=== PATIENT | female | born 1970 | race Caucasian/White ===

== ENCOUNTER 2020-06-11 06:23 | Outpatient (REF) | payer BC, SELFPAY ==
[2020-06-11 11:52] LABS: Estimated Average Glucose 148 mg/dL; Hemoglobin A1c % 6.8 %
[2020-06-11 12:13] LABS: Alanine Aminotransferase 36 U/L (0-31); Albumin Level 4.3 g/dL (3.5-5.0); Alkaline Phosphatase 88 U/L (39-117); Anion Gap 15 (12-20); Aspartate Amino Transferase 45 U/L (5-31); Bilirubin Total 0.5 mg/dL (0.0-1.0); Blood Urea Nitrogen 12 mg/dL (9-16); Calcium 9.2 mg/dL (8.4-10.2); Carbon Dioxide 26 mmol/L (22-29); Chloride 101 mmol/L (96-108); Cholesterol 218 mg/dL; Estimated Glomerular Filt Rate > 60; Glucose Fasting 145 mg/dL (60-99); HDL Cholesterol 58 mg/dL; LDL Cholesterol Calculated 131 mg/dl; Potassium 4.6 mmol/l (3.3-5.1); Sodium 137 mmol/L (135-145); Total Protein 7.9 g/dL (6.5-8.0); Triglycerides 147 mg/dL
== END 2020-06-11 06:24 | disposition home or self-care (01) ==
LOC: HO.HMGCLDS 06:23
PROVIDERS: PCP Nurse Practitioner Family; Visit Provider Nurse Practitioner Family
DX: E11.9 Type 2 diabetes mellitus without complications (principal)
CPT/HCPCS: 80053; 80061; 83036

== ENCOUNTER 2020-09-10 11:56 | Emergency (ER) | payer BC, SELFPAY ==
--- NOTE | 2020-09-10 | XR_ITS ---
EXAMINATION: XR CHEST CLINICAL INFORMATION: Cough and fever COMPARISON: None TECHNIQUE: Frontal view of the chest was obtained. FINDINGS: The lungs are well-expanded with patchy opacity in both lower lobes suspicious for developing infiltrate. Heart size and pulmonary vascularity is normal. No gross bony abnormality seen. XR/XR chest 1V IMPRESSION: Bibasilar patchy very suspicious for developing infiltrate.
[2020-09-10 13:07] VITALS: BP 130/62; PULSE 97; RESP 18; TEMP 37.9; O2SAT 96; BMI 40.7
--- NOTE | 2020-09-10 13:55 | ECG_ITS ---
Test Reason : SOB Blood Pressure : / mmHG Vent. Rate : 083 BPM Atrial Rate : 083 BPM P-R Int : 150 ms QRS Dur : 088 ms QT Int : 352 ms P-R-T Axes : 036 -17 048 degrees QTc Int : 413 ms Normal sinus rhythm Poor R wave progression Abnormal ECG When compared with ECG of 26-MAY-2011 20:52, No significant change was found Referred By: Portia More Electronically Signed By:YASH PALMA MD
--- NOTE | 2020-09-10 14:09 | ED.URI ---
HPI - URI/Sore Throat General Chief Complaint: Upper Respiratory Symptoms Stated Complaint: COVID SYMPTONS Time Seen by Provider: 09/10/20 13:26 Source: patient Mode of arrival: ambulatory Limitations: no limitations History of Present Illness HPI Narrative: 49yoF c PMHx of DM and +COVID-19 two weeks ago presenting to the ED c c/o worsening COVID-19 symptoms which include fevers, chills, dry cough c sob and chest tightness/pressure sensation for the past few days worse today. Reports associated dyspnea on exertion orthopnea. Patient reports the chest tightness/pressure sensation and shortness of breath is worse with coughing. Denies any headaches, dizziness, changes in vision, nausea/vomiting, jaw pain, paresthesias, palpitations, extremity swelling, symptoms or any other symptoms complaints or concerns at this time. MD elicited complaint: fever and cough Pertinent past history: other (COVID-19 positive) Severity: moderate Able to tolerate fluids by mouth: Yes Exacerbating factors: deep breaths and supine positioning Relieving factors: nothing Associated symptoms: fever, chills, myalgias, cough, chest pain and shortness of breath Treatments prior to arrival: ibuprofen Related Data Home Medications Medication Instructions Recorded Confirmed blood sugar diagnostic #10 ea 07/11/20 flu vac qs 2019(4 yr up)CD(PF) ml IM 07/11/20 lancets 33 gauge #100 ea 07/11/20 Previous Rx's Medication Instructions Recorded niacin 1,000 mg tablet,extended 2,000 mg PO BEDTIME 180 Days #360 05/23/20 release tab sitagliptin 100 mg tablet 100 mg PO DAILY 90 Days #90 tab 06/03/20 gabapentin 100 mg capsule 100 mg PO TID 30 Days #90 cap 06/04/20 venlafaxine 75 mg capsule,extended 75 mg PO DAILY 90 Days #90 cap 06/04/20 release 24 hr ezetimibe 10 mg tablet 10 mg PO DAILY #30 tab 06/13/20 pioglitazone 30 mg tablet 30 mg PO DAILY #30 tab 07/09/20 aspirin 81 mg tablet,delayed 81 mg PO DAILY 90 Days #90 tab 07/11/20 release colesevelam 625 mg tablet 625 mg PO BID 30 Days #60 tab 07/11/20 lisinopril 5 mg tablet 5 mg PO DAILY #30 tab 07/11/20 metformin 1,000 mg tablet 1,000 mg PO BID #60 tab 08/30/20 acetaminophen [Tylenol Extra 1,000 mg PO QID PRN #14 tab 09/10/20 Strength] albuterol sulfate 1 inh INHALATION QID PRN #8.5 g 09/10/20 azithromycin See Rx Instructions .ROUTE 09/10/20 .COMPLEX #6 tab codeine-guaifenesin 5 ml PO Q6H PRN #120 ml 09/10/20 cyclobenzaprine 10 mg PO TID PRN #10 tab 09/10/20 ibuprofen 800 mg PO Q8H PRN #14 tab 09/10/20 prednisone 40 mg PO DAILY 5 Days #10 tab 09/10/20 Allergies Allergy/AdvReac Type Severity Reaction Status Date / Time No Known Allergies Allergy Verified 07/11/20 17:07 Review of Systems Review of Systems: Constitutional :+ Fever, + Chills, + Fatigue, + Malaise, No Night Sweats ENT/Mouth : No Hearing loss, No Ear Pain, No Nasal Congestion, No Sinus Pain, No Hoarseness, No sore throat, No Rhinorrhea, No Swallowing Difficulty Eyes: No Eye Pain, No Swelling, No Redness, No Foreign Body, No Discharge, No Vision Changes Cardiovascular : + Chest tightness/pressure sensation, + SOB, + Dyspnea on Exertion, + Orthopnea, No Edema, No extremity swelling, No Palpitations Respiratory : + Cough, No Sputum, No Wheezing, No Dyspnea Gastrointestinal : No Nausea, No Vomiting, No Diarrhea, No abdominal Pain, No Hematochezia, No Melena Genitourinary : No irregular bleeding, No Dysuria, No Urinary Frequency, No Hematuria, No Urinary Incontinence, No Urgency, No Flank Pain, No Urinary Flow Changes, No Hesitancy Musculoskeletal : + Myalgias, No Joint Swelling, No joint pain Skin : No Skin Lesions, No rash Neuro : No Weakness, No Numbness, No Paresthesias, No Loss of Consciousness, No Dizziness, No Headache Psych : No Anxiety/Panic, No Depression, No SI/HI/AH/VH Heme/Lymph: No Bruising, No Bleeding,No Lymphadenopathy Endocrine : No Polyuria, No Polydipsia, No Temperature Intolerance Yes all other systems are reviewed and are negative [facility] Past Medical History Attestation statement: The following information was validated with the patient. Medical History Diabetes Surgical History History of carpal tunnel surgery Family History Family History Father HTN (hypertension) Myocardial infarction CVD (cardiovascular disease) Mother Asthma Maternal Grandmother Lung cancer Maternal Aunt Lung cancer Smoker Social History Social History Alcohol intake: never Use of substances other than those prescribed or required for medical reasons: No Advance Directives: No Advance Directives Information Provided: No Physical Exam Vital Signs: Vital Signs: Last Vital Signs Temp 98.9 F 09/10/20 17:42 Pulse 84 09/10/20 17:42 Resp 18 09/10/20 17:42 BP 104/65 09/10/20 17:42 Pulse Ox 98 09/10/20 17:42 Body Mass Index 40.7 vital signs have been reviewed as normal and appeared to be correct. Blood pressure normal. Heart rate tachycardic. Respiration rate normal. Temperature febrile. Oxygen saturation normal. Appearance: Alert. Oriented X3. No acute distress. Head: Normal external exam. Normocephalic. Atraumatic. Eyes: PERRLA. EOMI. Conjunctiva and sclera normal. Eyelids normal. ENT: EAC normal. TM's Normal. Pharynx normal. Uvula midline. Moist mucous membranes. No trismus noted. No drooling noted. No muffled voice noted. Neck: Normal inspection. Neck supple. FROM. No adenopathy. Thyroid Normal. Trachea midline. No meningeal signs. No neck mass noted. CVS: Normal heart rate and rhythm. Heart sound normal. No murmurs noted. Pulses normal throughout. Respiratory: No respiratory distress. Painless inspiration. Breath sounds normal. No wheezes/rales/rhonchi noted. Chest nontender. No accessory muscle usage noted or decreased air movement noted. Abdomen: Soft and nontender. Bowel sounds normal in all 4 quadrants. No distention noted. No organomegaly noted. No visible injury noted. Back: No CVA tenderness. Full range of motion noted. Skin: Skin warm and dry. Normal skin color. Normal skin turgor. No rashes/lesions/lacerations noted. Extremities: No lower extremity edema. No calf tenderness noted. Extremities exhibit normal range of motion. Extremities nontender. Neuro: Oriented X 3. No motor deficit. No sensory deficit. Reflexes normal. Course Course Course Narrative: 14pm - 49yoF c PMHx of DM and +COVID-19 two weeks ago presenting to the ED c c/o worsening COVID-19 symptoms which include fevers, chills, dry cough c sob and chest tightness/pressure sensation for the past few days worse today. Reports associated dyspnea on exertion orthopnea. Patient reports the chest tightness/pressure sensation and shortness of breath is worse with coughing. - Concern for ACS vs PE vs COVID-19 vs PNA - Plan: Labs, CXR, EKG, Blood cultures, lactic acid, provide a L of IV fluids and 975 mg of Tylenol then re-evaluate. Reevaluation(s) Reevaluation #1: - white blood cell count 3000 - D-dimer 287 - random glucose 160 - magnesium 1.3 - AST/ALT/alkaline phosphate elevated at 93/87/134 - CRP 3.01 - lactic acid 2.2 - all other labs are within normal limits. - CXR bibasilar patchy very suspicious for developing infiltrate - will start the patient on Rocephin due to she is meeting sepsis and due to possible developing infiltrate on chest x-ray - will obtain a CTA of chest for possible PE due to elevated D-dimer. - awaiting COVID/RSV/flu swab Time: 15:18 Reevaluation #2: - CTA negative for PE. COVID positive. RSV/flu negative. EKG is similar compared to prior. - will DC home with antibiotics and symptomatic treatment along with instructions return if any new or worsening symptoms to follow up with primary care provider. Time: 18:21 [facility] - URI/Sore Throat Medical Records Attestation: I reviewed the patient's medical records. Lab Data Attestation: I reviewed the patient's lab results. Result diagrams: 09/10/20 14:19 09/10/20 14:19 Labs: Lab Results 09/10/20 09/10/20 09/10/20 Range/Units 14:19 14:19 14:19 WBC 3.7 L (4.8-10.8) X10*3/uL RBC 4.34 (4.20-5.50) X10*6/uL Hgb 11.9 L (12.0-16.0) g/dl Hct 37.8 (37-47) % MCV 87.1 (80-98) fL MCH 27.4 (27.0-33.0) pg MCHC 31.5 (31.0-35.0) g/dl RDW 13.7 (11.0-16.0) % Plt Count 180 (160-400) X10*3/uL MPV 9.4 (9.4-12.3) fL Immature Gran % (Auto) 0.0 (0.0-0.4) % Neut % (Auto) 67.5 (45-73) % Lymph % (Auto) 26.7 (20-40) % [place] % (Auto) 5.2 (2-11) % Eos % (Auto) 0.3 (0-4) % Baso % (Auto) 0.3 (0-2) % Lymph # (Auto) 1.0 L (1.2-4.9) X10*3/uL [place] # (Auto) 0.2 (0.1-1.2) X10*3/uL Eos # (Auto) 0.0 (0.0-0.4) X10*3/uL Baso # (Auto) 0.0 (0.0-0.2) X10*3/uL Abs Immat Gran (auto) 0.00 (0.00-0.03) X10*3/uL Absolute Neuts (auto) 2.5 (2.0-8.3) X10*3/uL Absolute Nucleated RBC 0.000 (0.0-0.012) X10*3/uL Nucleated RBC % (auto) 0.0 (0.0-0.2) /100WBC PT 12.7 (10.8-13.0) SEC INR 1.1 (0.9-1.1) D-Dimer 287 NG/ML Sodium 138 (135-145) mmol/L Potassium 4.2 (3.3-5.1) mmol/L Chloride 103 (96-108) mmol/L Carbon Dioxide 23 (22-29) mmol/L Anion Gap 16 (12-20) BUN 11 (9-16) mg/dL Creatinine 0.91 (0.5-1.4) mg/dL Estim Creat Clear Calc 101.5 Estimated GFR > 60 Random Glucose 160 H (60-115) mg/dL Lactic Acid (0.5-2.0) mmol/L Lactic Acid Fup @ 2Hr (0.5-2.0) mmol/L Calcium 9.5 (8.4-10.2) mg/dL Magnesium 1.3 L* (1.6-2.6) mg/dL Ferritin 133 (10-250) ng/mL Total Bilirubin 0.5 (0.0-1.0) mg/dL Direct Bilirubin 0.2 (0.0-0.5) mg/dL AST 93 H (5-31) U/L ALT 87 H (0-31) U/L Alkaline Phosphatase 134 H D (39-117) U/L Lactate Dehydrogenase 218 (122-220) U/L Troponin I High Sens (<3.5-17.0) ng/L C-Reactive Protein 3.01 H (< or = 0.50) mg/dL B-Natriuretic Peptide (<100) pg/mL Total Protein 8.7 H (6.5-8.0) g/dL Albumin 4.5 (3.5-5.0) g/dL Procalcitonin ng/mL Coronavirus (PCR) (Negative) Influenza Type A (PCR) (Negative) Influenza Type B (PCR) (Negative) RSV RNA Qual (PCR) (Negative) 09/10/20 09/10/20 09/10/20 Range/Units 14:19 14:19 14:19 WBC (4.8-10.8) X10*3/uL RBC (4.20-5.50) X10*6/uL Hgb (12.0-16.0) g/dl Hct (37-47) % MCV (80-98) fL MCH (27.0-33.0) pg MCHC (31.0-35.0) g/dl RDW (11.0-16.0) % Plt Count (160-400) X10*3/uL MPV (9.4-12.3) fL Immature Gran % (Auto) (0.0-0.4) % Neut % (Auto) (45-73) % Lymph % (Auto) (20-40) % [place] % (Auto) (2-11) % Eos % (Auto) (0-4) % Baso % (Auto) (0-2) % Lymph # (Auto) (1.2-4.9) X10*3/uL [place] # (Auto) (0.1-1.2) X10*3/uL Eos # (Auto) (0.0-0.4) X10*3/uL Baso # (Auto) (0.0-0.2) X10*3/uL Abs Immat Gran (auto) (0.00-0.03) X10*3/uL Absolute Neuts (auto) (2.0-8.3) X10*3/uL Absolute Nucleated RBC (0.0-0.012) X10*3/uL Nucleated RBC % (auto) (0.0-0.2) /100WBC PT (10.8-13.0) SEC INR (0.9-1.1) D-Dimer NG/ML Sodium (135-145) mmol/L Potassium (3.3-5.1) mmol/L Chloride (96-108) mmol/L Carbon Dioxide (22-29) mmol/L Anion Gap (12-20) BUN (9-16) mg/dL Creatinine (0.5-1.4) mg/dL Estim Creat Clear Calc Estimated GFR Random Glucose (60-115) mg/dL Lactic Acid 2.2 H* (0.5-2.0) mmol/L Lactic Acid Fup @ 2Hr (0.5-2.0) mmol/L Calcium (8.4-10.2) mg/dL Magnesium (1.6-2.6) mg/dL Ferritin (10-250) ng/mL Total Bilirubin (0.0-1.0) mg/dL Direct Bilirubin (0.0-0.5) mg/dL AST (5-31) U/L ALT (0-31) U/L Alkaline Phosphatase (39-117) U/L Lactate Dehydrogenase (122-220) U/L Troponin I High Sens < 3.5 (<3.5-17.0) ng/L C-Reactive Protein (< or = 0.50) mg/dL B-Natriuretic Peptide 11 (<100) pg/mL Total Protein (6.5-8.0) g/dL Albumin (3.5-5.0) g/dL Procalcitonin 0.04 ng/mL Coronavirus (PCR) (Negative) Influenza Type A (PCR) (Negative) Influenza Type B (PCR) (Negative) RSV RNA Qual (PCR) (Negative) 09/10/20 09/10/20 Range/Units 16:27 17:41 WBC (4.8-10.8) X10*3/uL RBC (4.20-5.50) X10*6/uL Hgb (12.0-16.0) g/dl Hct (37-47) % MCV (80-98) fL MCH (27.0-33.0) pg MCHC (31.0-35.0) g/dl RDW (11.0-16.0) % Plt Count (160-400) X10*3/uL MPV (9.4-12.3) fL Immature Gran % (Auto) (0.0-0.4) % Neut % (Auto) (45-73) % Lymph % (Auto) (20-40) % [place] % (Auto) (2-11) % Eos % (Auto) (0-4) % Baso % (Auto) (0-2) % Lymph # (Auto) (1.2-4.9) X10*3/uL [place] # (Auto) (0.1-1.2) X10*3/uL Eos # (Auto) (0.0-0.4) X10*3/uL Baso # (Auto) (0.0-0.2) X10*3/uL Abs Immat Gran (auto) (0.00-0.03) X10*3/uL Absolute Neuts (auto) (2.0-8.3) X10*3/uL Absolute Nucleated RBC (0.0-0.012) X10*3/uL Nucleated RBC % (auto) (0.0-0.2) /100WBC PT (10.8-13.0) SEC INR (0.9-1.1) D-Dimer NG/ML Sodium (135-145) mmol/L Potassium (3.3-5.1) mmol/L Chloride (96-108) mmol/L Carbon Dioxide (22-29) mmol/L Anion Gap (12-20) BUN (9-16) mg/dL Creatinine (0.5-1.4) mg/dL Estim Creat Clear Calc Estimated GFR Random Glucose (60-115) mg/dL Lactic Acid (0.5-2.0) mmol/L Lactic Acid Fup @ 2Hr 1.7 (0.5-2.0) mmol/L Calcium (8.4-10.2) mg/dL Magnesium (1.6-2.6) mg/dL Ferritin (10-250) ng/mL Total Bilirubin (0.0-1.0) mg/dL Direct Bilirubin (0.0-0.5) mg/dL AST (5-31) U/L ALT (0-31) U/L Alkaline Phosphatase (39-117) U/L Lactate Dehydrogenase (122-220) U/L Troponin I High Sens (<3.5-17.0) ng/L C-Reactive Protein (< or = 0.50) mg/dL B-Natriuretic Peptide (<100) pg/mL Total Protein (6.5-8.0) g/dL Albumin (3.5-5.0) g/dL Procalcitonin ng/mL Coronavirus (PCR) POSITIVE A (Negative) Influenza Type A (PCR) NEGATIVE (Negative) Influenza Type B (PCR) NEGATIVE (Negative) RSV RNA Qual (PCR) NEGATIVE (Negative) Imaging Data Chest x-ray: Attestation: I personally reviewed and interpreted this imaging study as follows: Radiologist's impression: FINDINGS: The lungs are well-expanded with patchy opacity in both lower lobes suspicious for developing infiltrate. Heart size and pulmonary vascularity is normal. No gross bony abnormality seen. XR/XR chest 1V IMPRESSION: Bibasilar patchy very suspicious for developing infiltrate. CTA of chest for PE: Attestation: I personally reviewed and interpreted this imaging study as follows: Radiologist's impression: FINDINGS: QUALITY OF STUDY/CONTRAST BOLUS: Satisfactory. PULMONARY ARTERIES: No central or segmental pulmonary emboli. THORACIC AORTA: No aneurysm or dissection. LUNG: Patchy groundglass bilateral airspace disease is seen with a peripheral predominance consistent with underlying viral or atypical infectious etiology. PLEURA: No pleural effusion or pneumothorax. MEDIASTINUM: Normal heart size. No pericardial effusion. No hilar or mediastinal lymphadenopathy. No evidence of septal bowing or right heart strain. CHEST WALL/AXILLA: No axillary or internal mammary lymphadenopathy. OSSEOUS STRUCTURES: No acute or suspicious osseous abnormality. UPPER ABDOMEN: Unremarkable. No reflux of contrast into the hepatic veins to suggest elevated right heart pressures. CT/CT angio chest PE protocol IMPRESSION: Patchy bilateral groundglass airspace disease with a peripheral predominance consistent with underlying viral or atypical infectious etiology such as COVID. No evidence for pulmonary emboli. VTE: negative ECG Data Attestation: I personally reviewed and interpreted this ECG as follows: ECG interpretation date: 09/10/20 ECG interpretation time: 14:40 Interpretation: Normal sinus rhythm with a ventricular rate of 83 with a normal MS interval normal QRS duration normal QT/QTC interval. No acute ischemic changes noted. Similar when compared to prior EKG on 05/26/2011 Critical Care Time Critical Care Time Critical Care Time: Yes Total Critical Care Time: 60 Attestation: I personally attest to this time spent taking care of the patient Discharge Plan Discharge Clinical Impression: Low blood magnesium, COVID-19 Patient Disposition: Home, Self-Care Instructions: Hypomagnesemia (ED), COVID-19 (Coronavirus Disease 2019) (ED) Prescriptions: New cyclobenzaprine 10 mg tablet 10 mg PO TID PRN (Reason: muscle spasm) Qty: 10 RF: 0 azithromycin 250 mg tablet See Rx Instructions .ROUTE .COMPLEX Qty: 6 RF: 0 ibuprofen 800 mg tablet 800 mg PO Q8H PRN (Reason: pain) Qty: 14 RF: 0 prednisone 20 mg tablet 40 mg PO DAILY 5 Days Qty: 10 RF: 0 acetaminophen [Tylenol Extra Strength] 500 mg tablet 1,000 mg PO QID PRN (Reason: fever or pain) Qty: 14 RF: 0 albuterol sulfate 90 mcg/actuation HFA aerosol inhaler 1 inh inhalation QID PRN (Reason: shortness of breath or wheezing) Qty: 8.5 RF: 0 codeine-guaifenesin 10-100 mg/5 mL liquid 5 ml PO Q6H PRN (Reason: cold symptoms) Qty: 120 RF: 0 No Action niacin 1,000 mg tablet extended release 2,000 mg PO BEDTIME 180 Days Qty: 360 RF: 0 Januvia 100 mg tablet 100 mg PO DAILY 90 Days Qty: 90 RF: 1 gabapentin 100 mg capsule 100 mg PO TID 30 Days Qty: 90 RF: 3 venlafaxine 75 mg capsule,extended release 24hr 75 mg PO DAILY 90 Days Qty: 90 RF: 1 ezetimibe 10 mg tablet 10 mg PO DAILY Qty: 30 RF: 2 pioglitazone 30 mg tablet 30 mg PO DAILY Qty: 30 RF: 4 lisinopril 5 mg tablet 5 mg PO DAILY Qty: 30 RF: 2 metformin 1,000 mg tablet 1,000 mg PO BID Qty: 60 RF: 2 Flucelvax Quad (PF) 60 mcg (15 mcg x 4)/0.5 mL syringe IM RF: 0 (DME) OneTouch Verio test strips Strip See Rx Instructions ea Not Applicable DAILY Qty: 10 RF: 0 (DME) lancets 33 gauge misc See Rx Instructions ea .ROUTE DAILY Qty: 100 RF: 0 colesevelam [WelChol] 625 mg tablet 625 mg PO BID 30 Days Qty: 60 RF: 3 aspirin 81 mg tablet,delayed release (DR/EC) 81 mg PO DAILY 90 Days Qty: 90 RF: 3 Referrals: Johnathan Hancock, [employer] [Primary Care Provider] - 2 days Print Language: Nauruan
[2020-09-10] MEDS: 0.9 % Sodium Chloride 1,000 ML 999 ML IVCONT (14:22)
[2020-09-10] MEDS: Acetaminophen 325 MG TABLET 975 MG PO (14:33)
[2020-09-10 14:34] VITALS: O2SAT 96
[2020-09-10 14:36] LABS: MANUAL DIFF FLAG NO
[2020-09-10 14:44] LABS: Basophils Percent Auto 0.3 % (0-2); Eosinophils Percent Auto 0.3 % (0-4); Hematocrit 37.8 % (37-47); Hemoglobin 11.9 g/dl (12.0-16.0); Lymphocytes Percent Auto 26.7 % (20-40); Mean Corpuscular HGB Conc 31.5 g/dl (31.0-35.0); Mean Corpuscular Hemoglobin 27.4 pg (27.0-33.0); Mean Corpuscular Volume 87.1 fL (80-98); Mean Platelet Volume 9.4 fL (9.4-12.3); Monocytes Absolute Auto 0.2 X10*3/uL (0.1-1.2); Monocytes Percent Auto 5.2 % (2-11); Neutrophils Absolute Auto 2.5 X10*3/uL (2.0-8.3); Neutrophils Percent Auto 67.5 % (45-73); Platelet Count 180 X10*3/uL (160-400); Red Blood Count 4.34 X10*6/uL (4.20-5.50); Red Cell Distribution Width 13.7 % (11.0-16.0); White Blood Count 3.7 X10*3/uL (4.8-10.8)
[2020-09-10 14:46] LABS: INTERNATIONAL NORM RATIO 1.1 (0.9-1.1); Prothrombin Time 12.7 SEC (10.8-13.0)
[2020-09-10 14:49] LABS: D Dimer 287 NG/ML
[2020-09-10 15:08] LABS: Lactic Acid 2.2 mmol/L (0.5-2.0)
[2020-09-10 15:13] LABS: Alanine Aminotransferase 87 U/L (0-31); Albumin Level 4.5 g/dL (3.5-5.0); Alkaline Phosphatase 134 U/L (39-117); Anion Gap 16 (12-20); Aspartate Amino Transferase 93 U/L (5-31); Bilirubin Direct 0.2 mg/dL (0.0-0.5); Bilirubin Total 0.5 mg/dL (0.0-1.0); Blood Urea Nitrogen 11 mg/dL (9-16); C Reactive Protein 3.01 mg/dL (< or = 0.50); Calcium 9.5 mg/dL (8.4-10.2); Carbon Dioxide 23 mmol/L (22-29); Chloride 103 mmol/L (96-108); Creatinine Clr Calc Pharmacy 101.5; Estimated Glomerular Filt Rate > 60; Glucose Random 160 mg/dL (60-115); Lactate Dehydrogenase 218 U/L (122-220); Magnesium 1.3 mg/dL (1.6-2.6); Potassium 4.2 mmol/L (3.3-5.1); Sodium 138 mmol/L (135-145); Total Protein 8.7 g/dL (6.5-8.0)
--- NOTE | 2020-09-10 15:16 | CT_ITS ---
EXAMINATION: CT ANGIOGRAM OF THE CHEST WITH AND WITHOUT CONTRAST (CT PULMONARY ANGIOGRAM FOR PE) CLINICAL INFORMATION: Reason for Exam pt c sob elevated d-dimer ? covid?PE COMPARISON: None TECHNIQUE: Prior to contrast administration, noncontrast localization images were obtained. Subsequently, multidetector volumetric imaging was performed from the thoracic inlet to below the diaphragms following the administration of 80 mL Omnipaque 350 intravenous contrast. No contrast reaction reported Sagittal, coronal, and MIP oblique sagittal reformatted images were obtained on the CT workstation, uploaded to PACS, and reviewed. This CT examination was performed using dose optimization techniques as appropriate, variously including the following: *Automated exposure control *Adjustment of mA and/or kV according to patient size (this includes techniques or standardized protocols for targeted exams where dose is matched to indication/reason for exam; i.e. extremities or head) *Use of iterative reconstruction technique Total exam dose-length product 549 mGy-cm FINDINGS: QUALITY OF STUDY/CONTRAST BOLUS: Satisfactory. PULMONARY ARTERIES: No central or segmental pulmonary emboli. THORACIC AORTA: No aneurysm or dissection. LUNG: Patchy groundglass bilateral airspace disease is seen with a peripheral predominance consistent with underlying viral or atypical infectious etiology. PLEURA: No pleural effusion or pneumothorax. MEDIASTINUM: Normal heart size. No pericardial effusion. No hilar or mediastinal lymphadenopathy. No evidence of septal bowing or right heart strain. CHEST WALL/AXILLA: No axillary or internal mammary lymphadenopathy. OSSEOUS STRUCTURES: No acute or suspicious osseous abnormality. UPPER ABDOMEN: Unremarkable. No reflux of contrast into the hepatic veins to suggest elevated right heart pressures. CT/CT angio chest PE protocol IMPRESSION: Patchy bilateral groundglass airspace disease with a peripheral predominance consistent with underlying viral or atypical infectious etiology such as COVID. No evidence for pulmonary emboli. VTE: negative
[2020-09-10 15:17] LABS: B Type Natriuretic Peptide 11 pg/mL (<100); Troponin-I High Sensitivity < 3.5 ng/L (<3.5-17.0)
[2020-09-10 15:27] LABS: Procalcitonin 0.04 ng/mL
[2020-09-10 15:31] LABS: Ferritin 133 ng/mL (10-250)
[2020-09-10] MEDS: cefTRIAXone sodium 1 GM in 0.9 % Sodium Chloride 50 ML IV (15:51)
[2020-09-10] MEDS: Magnesium Sulfate/H2O 2 GM/50 ML PIGGYBACK IV (15:57)
[2020-09-10 16:23] VITALS: BP 138/61; PULSE 81; RESP 20; O2SAT 97
[2020-09-10 16:40] LABS: Reflex Lactate? Lactic Acid Added
[2020-09-10] MEDS: iohexoL 350 MG/ML 100 ML INFUS..BTL IV (17:02)
[2020-09-10 17:16] LABS: Influenza A PCR NEGATIVE (Negative); Influenza B PCR NEGATIVE (Negative); Resp Syncy Virus RNA Qual PCR NEGATIVE (Negative)
[2020-09-10 17:30] LABS: SARS COV2 PCR INHOUSE POSITIVE (Negative)
[2020-09-10 17:42] VITALS: BP 104/65; PULSE 84; RESP 18; TEMP 37.2; O2SAT 98
[2020-09-10 18:18] LABS: ~Lactic Acid-LAB USE ONLY 1.7 mmol/L (0.5-2.0)
== END 2020-09-10 18:34 | disposition home or self-care (01) ==
PROVIDERS: Physician Assistant Medical; Emergency Provider Emergency Medicine; PCP Nurse Practitioner Family
DX: U07.1 COVID-19 (principal); R06.02 Shortness of breath; E83.42 Hypomagnesemia; E11.9 Type 2 diabetes mellitus without complications
CPT/HCPCS: 0241U; 36415; 71045; 71275; 80048; 80076; 82728; 83605; 83615; 83735; 83880; 84145; 84484; 85025; 85379; 85610; 86140; 87040; 93005; 96361; 96365; 96366; 96375; 99284; 99291; J0696; J3475; Q9967

== ENCOUNTER 2020-10-17 06:25 | Outpatient (REF) | payer BC, SELFPAY ==
[2020-10-17 12:00] LABS: Alanine Aminotransferase 57 U/L (0-31); Albumin Level 4.4 g/dL (3.5-5.0); Alkaline Phosphatase 104 U/L (39-117); Anion Gap 16 (12-20); Aspartate Amino Transferase 62 U/L (5-31); Bilirubin Total 0.5 mg/dL (0.0-1.0); Blood Urea Nitrogen 15 mg/dL (9-16); Carbon Dioxide 23 mmol/L (22-29); Chloride 101 mmol/L (96-108); Cholesterol 231 mg/dL; Estimated Glomerular Filt Rate > 60; Glucose Fasting 166 mg/dL (60-99); HDL Cholesterol 54 mg/dL; LDL Cholesterol Calculated 150 mg/dl; Magnesium 1.6 mg/dL (1.6-2.6); Potassium 4.5 mmol/L (3.3-5.1); Sodium 135 mmol/L (135-145); Total Protein 7.9 g/dL (6.5-8.0); Triglycerides 137 mg/dL
[2020-10-17 12:11] LABS: Estimated Average Glucose 140 mg/dL; Hemoglobin A1c % 6.5 %
[2020-10-17 12:20] LABS: TSH reflex Free T4 1.62 uIU/mL (0.32-4.0)
[2020-10-17 12:28] LABS: Creatinine Urine 101.55 mg/dL
== END 2020-10-17 06:26 | disposition home or self-care (01) ==
LOC: HO.HMGCLDS 06:25
PROVIDERS: PCP Nurse Practitioner Family; Visit Provider Nurse Practitioner Family
DX: E11.9 Type 2 diabetes mellitus without complications (principal); E83.42 Hypomagnesemia
CPT/HCPCS: 36415; 80053; 80061; 82043; 83036; 83735; 84443

== ENCOUNTER 2020-12-14 09:43 | Outpatient (REF) | payer BC, SELFPAY ==
--- NOTE | ~2020-12-14 | MM_ITS ---
EXAMINATION: MM SCREENING DIGITAL BREAST TOMOSYNTHESIS, BILATERAL CLINICAL INFORMATION: Screening. Asymptomatic. The lifetime risk of breast cancer based on the Tyrer-Cuzick Model is 9%. COMPARISON: Mammography: 06/17/2019, 05/21/2018, 03/01/2017 TECHNIQUE: Digital breast tomosynthesis is performed in both the craniocaudal and mediolateral oblique views along with computer-aided detection (CAD). Synthesized 2D images are generated from the tomosynthesis. FINDINGS: There are scattered areas of fibroglandular density (ACR BI-RADS breast composition Category b). There are no significant masses, abnormal calcifications, or other abnormalities. Parenchymal pattern is similar to prior exams. No developing density. The axilla and skin contours are unremarkable. MM/MM tomosynthesis screening BI IMPRESSION: No mammographic evidence of malignancy. ASSESSMENT: BI-RADS 1: Negative RECOMMENDATION: Routine annual mammography screening. This patient's information was entered into a reminder system with a target due date for their next mammogram.
== END 2020-12-14 09:44 | disposition home or self-care (01) ==
LOC: HO.MAMMO 09:43
PROVIDERS: PCP Nurse Practitioner Family; Visit Provider Nurse Practitioner Family
DX: Z12.31 Encounter for screening mammogram for malignant neoplasm of breast (principal)
CPT/HCPCS: 77063; 77067

== ENCOUNTER 2021-03-11 07:47 | Outpatient (REF) | payer BC, SELFPAY ==
[2021-03-11 12:01] LABS: Alanine Aminotransferase 33 U/L (0-31); Albumin Level 4.3 g/dL (3.5-5.0); Alkaline Phosphatase 107 U/L (39-117); Anion Gap 16 (12-20); Aspartate Amino Transferase 42 U/L (5-31); Bilirubin Total 0.5 mg/dL (0.0-1.0); Blood Urea Nitrogen 13 mg/dL (9-16); Calcium 9.7 mg/dL (8.4-10.2); Carbon Dioxide 21 mmol/L (22-29); Chloride 104 mmol/L (96-108); Cholesterol 166 mg/dL; Estimated Glomerular Filt Rate > 60; Glucose Fasting 170 mg/dL (60-99); HDL Cholesterol 49 mg/dL; LDL Cholesterol Calculated 88 mg/dl; Potassium 4.2 mmol/L (3.3-5.1); Sodium 137 mmol/L (135-145); Total Protein 7.9 g/dL (6.5-8.0); Triglycerides 145 mg/dL
[2021-03-11 12:02] LABS: Estimated Average Glucose 160 mg/dL; Hemoglobin A1c % 7.2 %
[2021-03-11 12:12] LABS: Creatinine Urine 164.02 mg/dL; Microalbum/Creatinine Ratio Ur 76.2 ug/mg cr
== END 2021-03-11 07:48 | disposition home or self-care (01) ==
LOC: HO.HMGCLDS 07:47
PROVIDERS: PCP Nurse Practitioner Family; Visit Provider Nurse Practitioner Family
DX: E11.9 Type 2 diabetes mellitus without complications (principal); E78.5 Hyperlipidemia, unspecified
CPT/HCPCS: 36415; 80053; 80061; 82043; 83036

== ENCOUNTER 2021-09-10 06:22 | Outpatient (REF) | payer BC, SELFPAY ==
[2021-09-10 11:30] LABS: MANUAL DIFF FLAG NO
[2021-09-10 11:33] LABS: Appearance Urine HAZY; Color Urine YELLOW; Glucose Urine UA NEG (NEG); Leukocyte Esterase Urine NEG (NEG); Nitrite Urine NEG (NEG); PH 5.5 (5.0-8.0); Specific Gravity - Urine >= 1.030 (1.005-1.025); UACC Culture Trigger NO; Urine Blood TRACE (NEG); Urine Ketones NEG (NEG); Urine Protein 2+ MG/DL (NEG-TRACE)
[2021-09-10 11:40] LABS: Estimated Average Glucose 151 mg/dL; Hemoglobin A1c % 6.9 %
[2021-09-10 11:41] LABS: Basophils Percent Auto 0.5 % (0-2); Eosinophils Absolute Auto 0.1 X10*3/uL (0.0-0.4); Hematocrit 37.4 % (37.0-47.0); Hemoglobin 11.9 g/dl (12.0-16.0); Imm Gran Abs Auto 0.02 X10*3/uL (0.00-0.03); Imm Gran Pct Auto 0.3 % (0.0-0.4); Lymphocytes Absolute Auto 1.9 X10*3/uL (1.2-4.9); Lymphocytes Percent Auto 32.9 % (20-40); Mean Corpuscular HGB Conc 31.8 g/dl (31.0-35.0); Mean Corpuscular Hemoglobin 28.8 pg (27.0-33.0); Mean Corpuscular Volume 90.6 fL (80.0-98.0); Mean Platelet Volume 9.9 fL (9.4-12.3); Monocytes Absolute Auto 0.4 X10*3/uL (0.1-1.2); Monocytes Percent Auto 6.3 % (2-11); Neutrophils Absolute Auto 3.4 x10*3/uL (2.0-8.3); Platelet Count 259 X10*3/uL (160-400); Red Blood Count 4.13 X10*6/uL (4.20-5.50); Red Cell Distribution Width 13.2 % (11.0-16.0); White Blood Count 5.9 X10*3/uL (4.8-10.8)
[2021-09-10 11:59] LABS: Bacteria Urine 1+ /LPF; RBC Urine 0 /HPF (0); Squamous Epithelial Cell Urine 3+ /LPF
[2021-09-10 12:13] LABS: Alanine Aminotransferase 61 U/L (0-31); Albumin Level 4.4 g/dL (3.5-5.0); Alkaline Phosphatase 109 U/L (39-117); Anion Gap 15 (12-20); Aspartate Amino Transferase 95 U/L (5-31); Bilirubin Total 0.7 mg/dL (0.0-1.0); Blood Urea Nitrogen 13 mg/dL (9-16); C Reactive Protein 0.16 mg/dL (< or = 0.50); Calcium 10.8 mg/dL (8.4-10.2); Carbon Dioxide 25 mmol/L (22-29); Chloride 102 mmol/L (96-108); Cholesterol 164 mg/dL; Estimated Glomerular Filt Rate > 60; Glucose Fasting 166 mg/dL (60-99); HDL Cholesterol 45 mg/dL; LDL Cholesterol Calculated 94 mg/dl; Potassium 4.3 mmol/L (3.3-5.1); Rheumatoid Factor < 15.0 IU/mL (<15.0); Sodium 138 mmol/L (135-145); Total Protein 8.2 g/dL (6.5-8.0); Triglycerides 125 mg/dL
[2021-09-10 12:18] LABS: Erythrocyte Sedimentation Rate 23 MM/HR (0-20)
[2021-09-10 12:31] LABS: TSH reflex Free T4 1.93 uIU/mL (0.32-4.0)
[2021-09-12 06:31] LABS: Lyme Abs Screen <0.90 index
[2021-09-12 13:31] LABS: Anti Nuclear Antibody Screen NEGATIVE (NEGATIVE)
[2021-09-15 16:36] LABS: Cyclic Citrullinated Peptide <16 UNITS
== END 2021-09-10 06:23 | disposition home or self-care (01) ==
LOC: HO.HMGCLDS 06:22
PROVIDERS: Visit Provider Nurse Practitioner Family
DX: E11.9 Type 2 diabetes mellitus without complications (principal); R52 Pain, unspecified
CPT/HCPCS: 36415; 80053; 80061; 81001; 83036; 84443; 85025; 85652; 86038; 86039; 86140; 86200; 86431; 86617; 86618

== ENCOUNTER 2021-10-07 06:24 | Outpatient (REF) | payer BC, SELFPAY ==
[2021-10-07 11:56] LABS: Appearance Urine CLEAR; Color Urine YELLOW; Glucose Urine UA NEG (NEG); Leukocyte Esterase Urine 1+ (NEG); Nitrite Urine NEG (NEG); PH 5.5 (5.0-8.0); Specific Gravity - Urine 1.025 (1.005-1.025); UACC Culture Trigger YES; Urine Blood TRACE (NEG); Urine Ketones NEG (NEG); Urine Protein TRACE MG/DL (NEG-TRACE)
[2021-10-07 12:13] LABS: Alanine Aminotransferase 56 U/L (0-31); Albumin Level 4.2 g/dL (3.5-5.0); Alkaline Phosphatase 110 U/L (39-117); Anion Gap 14 (12-20); Aspartate Amino Transferase 77 U/L (5-31); Bilirubin Total 0.6 mg/dL (0.0-1.0); Blood Urea Nitrogen 13 mg/dL (9-16); Calcium 10.3 mg/dL (8.4-10.2); Carbon Dioxide 24 mmol/L (22-29); Chloride 102 mmol/L (96-108); Cholesterol 163 mg/dL; Estimated Glomerular Filt Rate > 60; Glucose Random 169 mg/dL (60-115); HDL Cholesterol 49 mg/dL; LDL Cholesterol Calculated 91 mg/dl; Potassium 4.4 mmol/L (3.3-5.1); Sodium 136 mmol/L (135-145); Total Protein 7.9 g/dL (6.5-8.0); Triglycerides 116 mg/dL
[2021-10-07 12:28] LABS: Bacteria Urine 2+ /LPF; Squamous Epithelial Cell Urine 3+ /LPF
[2021-10-07 12:35] LABS: Vitamin D 25-OH Total 30.9 ng/mL (>30)
[2021-10-08 15:01] LABS: Calcium, Ionized 5.3 mg/dL (4.8-5.6)
[2021-10-09 15:06] LABS: Calcium (PTHI) 10.3 mg/dL (8.6-10.2); PTHI 8 pg/mL (14-64)
== END 2021-10-07 06:25 | disposition home or self-care (01) ==
LOC: HO.HMGCLDS 06:24
PROVIDERS: Visit Provider Nurse Practitioner Family
DX: E78.5 Hyperlipidemia, unspecified (principal); E83.52 Hypercalcemia
CPT/HCPCS: 36415; 80053; 80061; 81001; 82306; 82330; 83970; 87086; 87147

== ENCOUNTER → 2021-12-16 14:48 | Outpatient (BNVA) | payer BC, SELFPAY | PROVIDERS: PCP Nurse Practitioner Family; Visit Provider Nurse Practitioner Family | DX: R40.0 Somnolence (principal) ==

== ENCOUNTER → 2021-12-30 15:44 | Outpatient (BNVA) | payer BC, SELFPAY | PROVIDERS: PCP Nurse Practitioner Family; Referring Provider Nurse Practitioner Family; Visit Provider Nurse Practitioner | DX: Z12.11 Encounter for screening for malignant neoplasm of colon (principal) ==

== ENCOUNTER 2022-01-26 09:33 | Outpatient (REF) | payer BC, SELFPAY ==
--- NOTE | ~2022-01-26 | MM_ITS ---
EXAMINATION: MM SCREENING DIGITAL BREAST TOMOSYNTHESIS, BILATERAL CLINICAL INFORMATION: Screening. Asymptomatic. The lifetime risk of breast cancer based on the Tyrer-Cuzick Model is 8%. COMPARISON: Mammography: 12/14/2020, 06/17/2019, 05/21/2018 TECHNIQUE: Digital breast tomosynthesis is performed in both the craniocaudal and mediolateral oblique views along with computer-aided detection (CAD). Synthesized 2D images are generated from the tomosynthesis. Additional bilateral MLO views are provided. FINDINGS: There are scattered areas of fibroglandular density (ACR BI-RADS breast composition Category b). There are no significant masses, abnormal calcifications, or other abnormalities. No developing density or architectural abnormality. Parenchymal pattern is similar to prior exams. The axilla are unremarkable. MM/MM tomosynthesis screening BI IMPRESSION: No mammographic evidence of malignancy. ASSESSMENT: BI-RADS 1: Negative RECOMMENDATION: Routine annual mammography screening. This patient's information was entered into a reminder system with a target due date for their next mammogram.
== END 2022-01-26 09:34 | disposition home or self-care (01) ==
LOC: HO.MAMMO 09:33
PROVIDERS: Visit Provider Nurse Practitioner Family
DX: Z12.31 Encounter for screening mammogram for malignant neoplasm of breast (principal)
CPT/HCPCS: 77063; 77067

== ENCOUNTER 2022-04-27 06:33 | Outpatient (REF) | payer BC, SELFPAY ==
[2022-04-27 11:17] LABS: MANUAL DIFF FLAG NO
[2022-04-27 11:39] LABS: Appearance Urine Clear; Color Urine Yellow; Glucose Urine UA Negative (Negative); Leukocyte Esterase Urine Moderate (2+) (Negative); Nitrite Urine Negative (Negative); PH 5.5 (5.0-9.0); UMIC TRIGGER UACC YES; Urine Blood Trace (Negative); Urine Ketones Negative (Negative); Urine Protein 30 (1+) mg/dL (Neg-Trace)
[2022-04-27 11:43] LABS: Basophils Percent Auto 0.5 % (0-2); Eosinophils Absolute Auto 0.1 X10*3/uL (0.0-0.4); Eosinophils Percent Auto 2.1 % (0-4); Hematocrit 35.9 % (37.0-47.0); Hemoglobin 11.3 g/dl (12.0-16.0); Imm Gran Abs Auto 0.02 X10*3/uL (0.00-0.03); Imm Gran Pct Auto 0.3 % (0.0-0.4); Lymphocytes Absolute Auto 1.5 X10*3/uL (1.2-4.9); Lymphocytes Percent Auto 26.8 % (20-40); Mean Corpuscular HGB Conc 31.5 g/dl (31.0-35.0); Mean Corpuscular Hemoglobin 28.6 pg (27.0-33.0); Mean Corpuscular Volume 90.9 fL (80.0-98.0); Mean Platelet Volume 10.2 fL (9.4-12.3); Monocytes Absolute Auto 0.5 X10*3/uL (0.1-1.2); Monocytes Percent Auto 8.2 % (2-11); Neutrophils Absolute Auto 3.6 x10*3/uL (2.0-8.3); Neutrophils Percent Auto 62.1 % (45-73); Platelet Count 219 X10*3/uL (160-400); Red Blood Count 3.95 X10*6/uL (4.20-5.50); Red Cell Distribution Width 13.2 % (11.0-16.0); White Blood Count 5.7 X10*3/uL (4.8-10.8)
[2022-04-27 11:45] LABS: Bacteria Urine 1+ (None Seen); Hyaline Casts Urine 0-2 /LPF (0-2); RBC Urine 0-2 /HPF (0-2); UACC Culture Trigger YES; WBC Urine >50 /HPF (0-5)
[2022-04-27 11:47] LABS: Estimated Average Glucose 157 mg/dL; Hemoglobin A1c % 7.1 %
[2022-04-27 12:03] LABS: Alanine Aminotransferase 39 U/L (0-31); Albumin Level 4.2 g/dL (3.5-5.0); Alkaline Phosphatase 114 U/L (39-117); Anion Gap 17 (12-20); Aspartate Amino Transferase 50 U/L (5-31); Bilirubin Total 0.9 mg/dL (0.0-1.0); Blood Urea Nitrogen 14 mg/dL (9-16); Carbon Dioxide 22 mmol/L (22-29); Chloride 102 mmol/L (96-108); Cholesterol 166 mg/dL; Estimated Glomerular Filt Rate > 60; Glucose Fasting 172 mg/dL (60-99); HDL Cholesterol 45 mg/dL; LDL Cholesterol Calculated 101 mg/dl; Potassium 4.5 mmol/L (3.3-5.1); Sodium 136 mmol/L (135-145); Total Protein 7.8 g/dL (6.5-8.0); Triglycerides 102 mg/dL
[2022-04-27 12:06] LABS: TSH reflex Free T4 1.46 uIU/mL (0.32-4.0)
[2022-04-27 12:16] LABS: Calcium 10.5 mg/dL (8.4-10.2)
== END 2022-04-27 06:34 | disposition home or self-care (01) ==
LOC: HO.HMGCLDS 06:33
PROVIDERS: PCP Nurse Practitioner Family; Visit Provider Nurse Practitioner Family
DX: E11.9 Type 2 diabetes mellitus without complications (principal); E83.52 Hypercalcemia
CPT/HCPCS: 36415; 80053; 80061; 81001; 83036; 84443; 85025; 87086

== ENCOUNTER 2022-05-08 12:37 | Outpatient (REF) | payer BC, SELFPAY ==
[2022-05-10 13:31] LABS: Calcium (PTHI) 10.1 mg/dL (8.6-10.2); PTHI 21 pg/mL (16-77)
[2022-05-13 12:07] LABS: Calcium, Ionized 5.1 mg/dL (4.8-5.6)
== END 2022-05-08 12:38 | disposition home or self-care (01) ==
LOC: HO.HMGCLDS 12:37
PROVIDERS: PCP Nurse Practitioner Family; Visit Provider Nurse Practitioner Family
DX: E83.52 Hypercalcemia (principal)
CPT/HCPCS: 36415; 82330; 83970

== ENCOUNTER 2022-05-25 06:48 | Day surgery (SDC) | payer BC, SELFPAY ==
[2022-05-19 13:10] VITALS: BMI 42.0
--- NOTE | 2022-05-22 12:16 | P.CONAN_ITS ---
Documented by User: Jaki Soni NP 05/22/22 12:17 HPI - Anesthesia Eval Consult details Narrative: 51yo F for Colonoscopy PMFSH Active Problems Active Problems: All Active Problems (Updated 05/19/22 @ 13:06 by Nithya Montiel, LALO) COVID-19 (Acute) Hypomagnesemia (Acute) Dyslipidemia (Acute) Whole body pain (Acute) Hypercalcemia (Acute) Microscopic hematuria (Acute) Screening for colon cancer (Acute) EPIFANIO (obstructive sleep apnea) (Acute) Sinus infection (Acute) Loud snoring (Acute) Witnessed episode of apnea (Acute) Daytime sleepiness (Acute) Colon cancer screening (Acute) Pneumonia (Acute) History of carpal tunnel surgery (Acute) Diabetes (Acute) Past Medical History Medical History Diabetes History of COVID-19 Pneumonia Sleep apnea Family History Family History Father HTN (hypertension) Myocardial infarction CVD (cardiovascular disease) Mother Asthma Maternal Grandmother Lung cancer Maternal Aunt Lung cancer Smoker Surgical History Surgical History (Updated 05/25/22 @ 07:08 by Dahiana Garnica RN) H/O tubal ligation History of carpal tunnel surgery Social History Social History Housing: Apartment Alcohol intake: never Patient Tobacco Use Status: Never used Tobacco e-Cigarette/Vaping Use: Never Used Second Hand Smoke Exposure: No Use of substances other than those prescribed or required for medical reasons: No Are you DNR?: No Advance Directives: No Advance Directives Information Provided: Yes Current occupational status: employed 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 Cognitive needs: No Hearing needs: No Vision needs: No Meds Allergies Allergy/AdvReac Type Severity Reaction Status Date / Time No Known Allergies Allergy Verified 02/03/22 16:24 Home Medications Medication Instructions Recorded Confirmed Last Taken Type flu vac qs 2019(4 yr up)CD(PF) 60 ml IM 07/11/20 02/03/22 Unknown History mcg(15 mcgx4)/0.5 mL IM syringe cetirizine 10 mg capsule (Zyrtec) 10 mg PO DAILY PRN Allergy Symptoms 12/16/21 05/19/22 Unknown History Exam Exam Date and Time: May 22, 2022 1216 Height,Weight and Vital Signs: Height 5 ft 7 in Weight 121.733 kg Pertinent Lab Results Pertinent Lab Results: Laboratory Tests 04/27/22 04/27/22 06:42 06:42 WBC 5.7 Hgb 11.3 L Hct 35.9 L Plt Count 219 Sodium 136 Potassium 4.5 Chloride 102 Carbon Dioxide 22 BUN 14 Creatinine 0.84 Assessment and Plan Assessment Anesthesia Assessment: Chart Reviewed Documented by User: Corazon Huang MD 05/25/22 07:54 [facility] Past Medical History Medical History Diabetes History of COVID-19 Pneumonia Sleep apnea Functional capacity: independent ambulation Patient : No Family History Family History Father HTN (hypertension) Myocardial infarction CVD (cardiovascular disease) Mother Asthma Maternal Grandmother Lung cancer Maternal Aunt Lung cancer Smoker Family history of problems with anesthesia: No Surgical History Surgical History (Updated 05/25/22 @ 07:08 by Dahiana Garnica RN) H/O tubal ligation History of carpal tunnel surgery History of Problems with Anesthesia: No Social History Social History Housing: Apartment Alcohol intake: never Patient Tobacco Use Status: Never used Tobacco e-Cigarette/Vaping Use: Never Used Second Hand Smoke Exposure: No Use of substances other than those prescribed or required for medical reasons: No Are you DNR?: No Advance Directives: No Advance Directives Information Provided: Yes Current occupational status: employed 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 Cognitive needs: No Hearing needs: No Vision needs: No Meds Allergies Allergy/AdvReac Type Severity Reaction Status Date / Time No Known Allergies Allergy Verified 02/03/22 16:24 Home Medications Medication Instructions Recorded Confirmed Last Taken Type flu vac qs 2019(4 yr up)CD(PF) 60 ml IM 07/11/20 02/03/22 Unknown History mcg(15 mcgx4)/0.5 mL IM syringe cetirizine 10 mg capsule (Zyrtec) 10 mg PO DAILY PRN Allergy Symptoms 12/16/21 05/19/22 Unknown History Exam Airway Mallampati Class: III TM Dist: >3cm Neck ROM: Full Heart: RRR Lungs: CTA Assessment and Plan Final Anesthetic Review Family History of Problems with Anesthesia: No History of Problems with Anesthesia: No ASA Class: III Final Preanesthetic Review: No Changes in Pt Med Stat, Meds/Allgs Chart Reviewed, Consent Obtained/Reviewed and Anes Risks/Benef Reviewed Patient Risk: Intermediate Procedure Risk: Low Anesthetic Plan Anesthetic Plan: MAC: Disposition: Standard PACU
[2022-05-25 07:03] VITALS: BMI 43.0
[2022-05-25 07:09] VITALS: BMI 43.0
[2022-05-25 07:10] VITALS: PULSE 76; RESP 18; TEMP 36.6; O2SAT 98
--- NOTE | 2022-05-25 07:17 | MHC.SHP ---
Pre-Procedural Eval Section A Date of Service: 05/25/22 The patient is an INPATIENT: No The History & Physical has been completed within 30 days and I have reviewed it.: No Section B Chief Complaint: screening Details of Present Illness: Colon cancer screening Relevant Family History (Specify if Yes): No Relevant Social History: None Present Medications: see Short Stay Collaborative assessment Medical History: Significant History (Obstructive sleep apnea High cholesterol Diabetes Microscopic hematuria History of COVID-19 infection History of pneumonia) History of Previous Operations: Relevant previous surgery/procedure and date(s) (History of carpal tunnel surgery) Allergies: Allergies Allergy/AdvReac Type Severity Reaction Status Date / Time No Known Allergies Allergy Verified 02/03/22 16:24 Review of Systems Sugical H&P ROS: Negative: Constitution, Cardiovascular, Respiratory and Gastrointestinal Exam Surgical H&P Exam: Normal: Heart, Normal: Lungs and Normal: Extremities Plan Diagnosis/Plan: Unchanged I have reviewed the history and physical and performed a pertinent physical examination on my patient. No changes have occurred unless specified.
--- NOTE | 2022-05-25 07:18 | PM.OP ---
Brief Operative Note Date of Service: 05/25/22 Pre-op diagnosis: Colon cancer screening Post-op diagnosis: other (Colon polyp, diverticulosis, hemorrhoids) Procedure: COLONOSCOPY TILL CECUM WITH SNARE POLYPECTOMY AND SUBMUCOSAL INJECTION Consent: Indications for the procedure and potential complications of bleeding, perforation, reaction to medications and missed diagnosis were discussed with the patient and informed consent was obtained. Instrument: Olympus PCF H 190 L variable stiffness pediatric colonoscope Monitoring: Vital signs and clinical assessment, intermittent blood pressure monitoring, continuous EKG monitoring, Pulse oximetry and Carbon Dioxide monitoring were done throughout the procedure. Colon withdrawl time was 16 minutes. Procedure: The patient was placed in the left lateral decubitis position and pre-procedure medications were administered. After a digital rectal examination of the ano-rectum, the video colonoscope was inserted into the rectum and advanced through the colon to the cecum. The colonoscope was slowly withdrawn in a retrograde panoramic fashion and the colon mucosa was carefully examined including a retroflexed view of the rectum. Findings and interventions are described below. Procedure Difficulty: Without difficulty Findings: Terminal Ileum: Not evaluated Cecum: Normal Ascending Colon: A 12-15 mm flat polyp at the hepatic flexure raised with 5 cc of normal saline (submucosal injection) and removed with a hot snare Transverse Colon: Normal Descending Colon: Normal Sigmoid Colon: Moderate diverticulosis Rectum: Normal Ano-rectum: Moderate internal hemorrhoids Colon preparation: Excellent Impression and Post Procedure Diagnosis: Colonoscopy Findings: One medium sized polyp removed Moderate diverticulosis seen in the sigmoid colon Moderate hemorrhoids on retroflexed exam. Plan: Await pathology results Patient has an appointment on 06/20/22 in the [facility] with Erna Morgan NP. Repeat Colonoscopy interval based on path results - in 3 years if polyps are adenomatous and 10 years if polyps are hyperplastic. Above findings were reviewed with the patient and colon polyps and diverticulosis handouts were given in the discharge area Surgeon: David Ugalde MD Anesthesia: MAC (Dr Yoon) Was an Product Development Scientist used for this Procedure?: Yes Product Development Scientist: Jennifer Miller Estimated blood loss (mL): 0 Pathology: other (A.colon polyp @ hepatic flexure with normal saline) Condition: stable Disposition: PACU
[2022-05-25 07:21] VITALS: BP 149/81; PULSE 76; RESP 18; TEMP 36.6; O2SAT 98
[2022-05-25 07:22] LABS: Glucose, Whole Blood 166 mg/dL (60-115)
--- NOTE | 2022-05-25 08:00 | P.OP_ITS ---
Operative Note Operative Note Date of Service: 05/25/22 Narrative: Pre-op diagnosis: Colon cancer screening Post-op diagnosis:?other (Colon polyp, diverticulosis, hemorrhoids) Procedure: COLONOSCOPY TILL CECUM WITH SNARE POLYPECTOMY AND SUBMUCOSAL INJECTION Consent: Indications for the procedure and potential complications of bleeding, perforation, reaction to medications and missed diagnosis were discussed with the patient and informed consent was obtained. Instrument: Olympus PCF H 190 L variable stiffness pediatric colonoscope Monitoring: Vital signs and clinical assessment, intermittent blood pressure monitoring, continuous EKG monitoring, Pulse oximetry and Carbon Dioxide monitoring were done throughout the procedure. Colon withdrawl time was 16 minutes. Procedure: The patient was placed in the left lateral decubitis position and pre-procedure medications were administered. After a digital rectal examination of the ano-rectum, the video colonoscope was inserted into the rectum and advanced through the colon to the cecum. The colonoscope was slowly withdrawn in a retrograde panoramic fashion and the colon mucosa was carefully examined including a retroflexed view of the rectum. Findings and interventions are described below. Procedure Difficulty: Without difficulty Findings: Terminal Ileum: Not evaluated Cecum:? Normal Ascending Colon:? A 12-15 mm flat polyp at the hepatic flexure raised with 5 cc of normal saline (submucosal injection) and removed with a hot snare Transverse Colon:? Normal Descending Colon:? Normal Sigmoid Colon:? Moderate diverticulosis Rectum:? Normal Ano-rectum:? Moderate internal hemorrhoids Colon preparation: Excellent ? Impression and Post Procedure Diagnosis: Colonoscopy Findings: One medium sized polyp removed Moderate diverticulosis seen in the sigmoid colon Moderate hemorrhoids on retroflexed exam. Plan: Await pathology results Patient has an appointment on 06/20/22 in the GI Clinic with? Erna Morgan NP. Repeat Colonoscopy interval based on path results - in 3 years if polyps are adenomatous and 10 years if polyps are hyperplastic. Above findings were reviewed with the patient and colon polyps and diverticulosis handouts were given in the discharge area Surgeon: David Ugalde MD Anesthesia:?MAC (Dr Yoon) Was an Commercial Lines Insurance Agent used for this Procedure?:?Yes Commercial Lines Insurance Agent:?Jennifer Miller Estimated blood loss (mL):?0 Pathology:?other (A.colon polyp @ hepatic flexure with normal saline) Condition:?stable Disposition:?PACU
[2022-05-25 08:41] VITALS: BP 113/43; PULSE 86; RESP 16; TEMP 37.1; O2SAT 93
[2022-05-25 08:56] VITALS: BP 125/57; PULSE 75; RESP 16; O2SAT 97
[2022-05-25 09:11] VITALS: BP 128/76; PULSE 73; RESP 16; TEMP 37.2; O2SAT 98
--- NOTE | 2022-05-25 09:12 | HO.POSTANES ---
Post Anesthesia Evaluation Post Anesthesia Evaluation Vital Signs: Vital Signs Temp Pulse Resp BP Pulse Ox O2 Del Method 05/25/22 08:56 75 16 125/57 L 97 Room Air 05/25/22 08:41 98.7 F 86 16 113/43 L 93 Room Air 05/25/22 07:21 97.9 F 76 18 149/81 H 98 Room Air 05/25/22 07:10 97.9 F 76 18 98 Room Air Anesthesia: Monitored Mental Status: Awake Pain Control: Satisfactory Nausea/Vomiting: None Hydration: Adequate Anesthesia-Related Issues: No Anes. Related Issues
== END 2022-05-25 09:00 | disposition home or self-care (01) ==
PROVIDERS: PCP Nurse Practitioner Family; Visit Provider Internal Medicine Gastroenterology
PROC: 0DJD8ZZ Inspection of Lower Intestinal Tract, Via Natural or Artificial Opening Endoscopic (ICD-10-PCS; CPT 45378; principal; 2022-05-25 08:00)
DX: Z12.11 Encounter for screening for malignant neoplasm of colon (principal); D12.3 Benign neoplasm of transverse colon; K57.30 Diverticulosis of large intestine without perforation or abscess without bleeding; K64.8 Other hemorrhoids; G47.33 Obstructive sleep apnea (adult) (pediatric); E78.00 Pure hypercholesterolemia, unspecified; E11.9 Type 2 diabetes mellitus without complications; R31.29 Other microscopic hematuria; Z79.82 Long term (current) use of aspirin; Z79.84 Long term (current) use of oral hypoglycemic drugs; Z79.899 Other long term (current) drug therapy; Z87.01 Personal history of pneumonia (recurrent); Z86.16 Personal history of COVID-19
CPT/HCPCS: 45385; 45381; 82947; 88305

== ENCOUNTER 2022-11-09 06:36 | Outpatient (REF) | payer OTHER, SELFPAY ==
[2022-11-09 11:15] LABS: MANUAL DIFF FLAG NO
[2022-11-09 11:56] LABS: Basophils Percent Auto 0.5 % (0-2); Eosinophils Absolute Auto 0.1 X10*3/uL (0.0-0.4); Eosinophils Percent Auto 2.3 % (0-4); Hematocrit 35.6 % (37.0-47.0); Hemoglobin 11.4 g/dl (12.0-16.0); Imm Gran Abs Auto 0.01 X10*3/uL (0.00-0.03); Imm Gran Pct Auto 0.2 % (0.0-0.4); Lymphocytes Absolute Auto 1.8 X10*3/uL (1.2-4.9); Lymphocytes Percent Auto 29.5 % (20-40); Mean Corpuscular Hemoglobin 28.9 pg (27.0-33.0); Mean Corpuscular Volume 90.1 fL (80.0-98.0); Mean Platelet Volume 9.9 fL (9.4-12.3); Monocytes Absolute Auto 0.3 X10*3/uL (0.1-1.2); Monocytes Percent Auto 5.4 % (2-11); Neutrophils Absolute Auto 3.7 x10*3/uL (2.0-8.3); Neutrophils Percent Auto 62.1 % (45-73); Platelet Count 227 X10*3/uL (160-400); Red Blood Count 3.95 X10*6/uL (4.20-5.50); Red Cell Distribution Width 13.4 % (11.0-16.0)
[2022-11-09 12:21] LABS: Alanine Aminotransferase 47 U/L (0-31); Alkaline Phosphatase 96 U/L (39-117); Anion Gap 13 (12-20); Aspartate Amino Transferase 64 U/L (5-31); Bilirubin Total 0.9 mg/dL (0.0-1.0); Blood Urea Nitrogen 13 mg/dL (9-16); Carbon Dioxide 25 mmol/L (22-29); Chloride 104 mmol/L (96-108); Cholesterol 159 mg/dL; Estimated Glomerular Filt Rate > 60; Glucose Fasting 145 mg/dL (60-99); HDL Cholesterol 48 mg/dL; LDL Cholesterol Calculated 93 mg/dl; Potassium 4.3 mmol/L (3.3-5.1); Sodium 138 mmol/L (135-145); Total Protein 7.5 g/dL (6.5-8.0); Triglycerides 91 mg/dL; Vitamin D 25-OH Total 47.9 ng/mL (>30)
== END 2022-11-09 06:37 | disposition home or self-care (01) ==
LOC: HO.HMGCLDS 06:36
PROVIDERS: PCP Nurse Practitioner Family; Visit Provider Nurse Practitioner Family
DX: E11.9 Type 2 diabetes mellitus without complications (principal); E55.9 Vitamin D deficiency, unspecified
CPT/HCPCS: 36415; 80053; 80061; 82306; 84443; 85025

== ENCOUNTER 2023-02-11 06:26 | Outpatient (REF) | payer OTHER, SELFPAY | END 2023-02-11 06:27 | disposition home or self-care (01) | LOC: HO.HMGCLDS 06:26 | PROVIDERS: PCP Nurse Practitioner Family; Visit Provider Nurse Practitioner Family | DX: D64.9 Anemia, unspecified (principal); E11.9 Type 2 diabetes mellitus without complications | CPT/HCPCS: 36415; 82043; 82607; 82728; 82746; 83036; 83540; 85025 ==

== ENCOUNTER 2023-02-12 10:25 | Outpatient (REF) | payer OTHER, SELFPAY ==
[2023-02-15 22:03] LABS: Hematocrit 35.4 % (35.0-45.0); Hemoglobin 11.7 g/dL (11.7-15.5); MCH 29.1 pg (27.0-33.0); MCV 88.1 fL (80.0-100.0); RBC 4.02 Million/uL (3.80-5.10); RDW 12.7 % (11.0-15.0)
== END 2023-02-12 10:26 | disposition home or self-care (01) ==
LOC: HO.HMGCLDS 10:25
PROVIDERS: PCP Nurse Practitioner Family; Visit Provider Nurse Practitioner Family
DX: D64.9 Anemia, unspecified (principal)
CPT/HCPCS: 36415; 83020; 85014; 85018; 85041

== ENCOUNTER 2023-02-15 15:04 | Outpatient (AMB) | payer OTHER, SELFPAY ==
--- NOTE | 2023-02-15 15:14 | MHC.PC.OV ---
Vital Signs 02/15/23 15:16 Height 5 ft 7 in Weight 262 lb 8 oz BMI 41.1 BP 118/78 Blood Pressure Location Lt brachial Position Sitting Pulse 93 Pulse Source Pulse Oximeter Pulse Oximetry (%) 98 Oxygen Delivery Method Room Air Intake Visit Reasons: 3m follow up Allergies No Known Allergies Allergy (Verified 02/15/23 15:18) Medication List - Last Reconciled 02/15/23 by JUSTIN Ramon aspirin 81 mg PO DAILY 90 days atorvastatin 10 mg PO BEDTIME betamethasone dipropionate 0.05% 1 appl topical BID PRN 30 days blood sugar diagnostic tid blood sugar diagnostic (OneTouch Verio test strips) TID testing cetirizine (Zyrtec) 10 mg PO DAILY PRN colesevelam 625 mg PO BID dulaglutide (Trulicity) 0.75 mg (0.5 mL) subcut QWEEK 90 days flu vac qs 2019(4 yr up)CD(PF) mL IM gabapentin 100 mg PO TID lancets tid lisinopril 10 mg PO DAILY metformin 1,000 mg PO BID 90 days niacin ER 2,000 mg (2 x 1,000 mg) PO BEDTIME pioglitazone 30 mg PO DAILY venlafaxine ER 150 mg PO DAILY Tobacco use date assessed: 02/15/23 Dental Screening Dental Screen Date: 02/15/23 Did you have a dental visit in the last 12 months?: Yes Did you have a dental problem in the last 6 months where you did not have access to dental care?: No Was dental information given to patient?: Patient has dentist HPI 3m follow up HPI Details Pt is a diabetic, on an DIDIER and a statin. Last A1c was 6.1, though pt is anemic. Microalbumin is up to date. Denies polyuria, polydipsia, and neuropathy. Pt denies any signs and symptoms of hypoglycemia and does know how to correct it. Will increase trulicity from 0.75mg to 1.5mg. Will stop januvia. 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 Josesito Ulloa, Juana Calderon, Sushil Chavez and colleagues, with an educational sudheer from [email or web address]. Review of Systems Const Reports as per HPI Physical exam (Primary Care) Vital Signs: Last Vital Signs Pulse 93 02/15/23 15:16 BP 118/78 02/15/23 15:16 Pulse Ox 98 02/15/23 15:16 Oxygen Delivery Method Room Air 02/15/23 15:16 BMI result Body Mass Index 41.1 Tobacco/Smoking Status: Tobacco use Status Tobacco use date assessed 02/15/23 02/15/23 15:21 Patient Tobacco Use Status Never used Tobacco 02/15/23 15:14 e-Cigarette/Vaping Use Never Used 02/15/23 15:14 Thrive Assessment: Date of Thrive Assessment Date Thrive assessed 09/08/22 02/15/23 15:14 Const General: cooperative Nutritional Appearance: obese morbidly obese Orientation/consciousness: patient oriented x3 Resp Effort & Inspection: normal respiratory effort Auscultation: clear to auscultation bilaterally Cardio Rate: regular rate Rhythm: regular rhythm Heart sounds: S1 normal heart sound present, S2 normal heart sound present and Murmur heart sound present systolic Neuro General: patient oriented x3 Extrem Other: bilat feet: + sensation with use of monofilament Psych Appearance: grossly normal Mental Status: mental status grossly normal Speech and movement: Normal speech and movement present Affect: normal affect Attitude: cooperative Thought process: Normal thought process present Thought content: Normal thought content present Insight: Good insight present (Psych) Judgement: Good judgement present (Psych) Assessment and Plan Assessment & Plan (1) Diabetes: Code(s): E11.9 - Type 2 diabetes mellitus without complications Plan The patient agreed to the use of a regional medical director for this encounter. Scribed for JUSTIN Germain by Mariah Medel regional medical director, on 02/15/2023 at 15:30 EST. Orders: Orders Complete Blood Count Auto Diff Today E11.9 - Type 2 diabetes mellitus without complications Comprehensive Round O. Panel Fast Today E11.9 - Type 2 diabetes mellitus without complications TSH reflex Free T4 Today E11.9 - Type 2 diabetes mellitus without complications UA CC w/rflx Micro + Cult Today E11.9 - Type 2 diabetes mellitus without complications Lipid Panel Today E11.9 - Type 2 diabetes mellitus without complications Medications: Changed From dulaglutide (Trulicity) 0.75 mg (0.5 mL) subcut QWEEK 90 days 6.5 mL 0RF To dulaglutide 1.5 mg (0.5 mL) subcut QWEEK 6.5 mL 0RF 90 days Discontinued sitagliptin phosphate (Januvia) Discontinued Reason: Doctor's Order 100 mg PO DAILY 90 tabs 1RF Coding Level of Care Code Est Pt Level 3 (70313) Diagnoses Diabetes E11.9
[2023-02-15 15:16] VITALS: BP 118/78; PULSE 93; O2SAT 98; BMI 41.1
== END 2023-02-15 15:44 | disposition home or self-care (01) ==
PROVIDERS: Visit Provider Nurse Practitioner Family
DX: E11.9 Type 2 diabetes mellitus without complications (principal)
CPT/HCPCS: 99213

== ENCOUNTER 2023-02-22 07:47 | Outpatient (REF) | payer OTHER, SELFPAY ==
--- NOTE | ~2023-02-22 | MM_ITS ---
EXAMINATION: MM SCREENING DIGITAL BREAST TOMOSYNTHESIS, BILATERAL CLINICAL INFORMATION: Screening. Asymptomatic. The lifetime risk of breast cancer based on the Tyrer-Cuzick Model is 9.4%. COMPARISON: Mammography: This study is compared with prior exams dating back to 2018. TECHNIQUE: Digital breast tomosynthesis is performed in both the craniocaudal and mediolateral oblique views along with computer-aided detection (CAD). Synthesized 2D images are generated from the tomosynthesis. FINDINGS: The breasts are almost entirely fatty (ACR BI-RADS breast composition Category a). There are no significant masses, abnormal calcifications, or other abnormalities. MM/MM tomosynthesis screening BI IMPRESSION: No mammographic evidence of malignancy. ASSESSMENT: BI-RADS BI-RADS 1 - Negative RECOMMENDATION: Routine annual mammography screening. 1 year F/U This examination should not preclude the clinical evaluation of a suspicious palpable abnormality. This patient's information was entered into a reminder system with a target due date for their next mammogram.
== END 2023-02-22 07:48 | disposition home or self-care (01) ==
LOC: HO.MAMMO 07:47
PROVIDERS: PCP Nurse Practitioner Family; Visit Provider Nurse Practitioner Family
DX: Z12.31 Encounter for screening mammogram for malignant neoplasm of breast (principal)
CPT/HCPCS: 77063; 77067

== ENCOUNTER → 2023-02-22 08:00 | Outpatient (BNV) | payer OTHER, SELFPAY | PROVIDERS: PCP Nurse Practitioner Family; Visit Provider Radiology Diagnostic Radiology | DX: Z12.31 Encounter for screening mammogram for malignant neoplasm of breast (principal) | CPT/HCPCS: 77063; 77067 ==

== ENCOUNTER 2023-05-17 10:28 | Outpatient (REF) | payer OTHER, SELFPAY ==
[2023-05-18 22:04] LABS: Antibody to SS-A Antigen <1.0 NEG AI (<1.0 NEG); Antibody to SS-B Antigen <1.0 NEG AI (<1.0 NEG)
[2023-05-20 15:12] LABS: Anti Nuclear Antibody Screen NEGATIVE (NEGATIVE)
== END 2023-05-17 10:29 | disposition home or self-care (01) ==
LOC: HO.HMGCLDS 10:28
PROVIDERS: PCP Nurse Practitioner Family; Visit Provider Nurse Practitioner Family
DX: M25.50 Pain in unspecified joint (principal); E11.9 Type 2 diabetes mellitus without complications; R30.0 Dysuria
CPT/HCPCS: 36415; 80053; 80061; 81001; 84443; 84550; 85025; 85652; 86038; 86140; 86200; 86235; 86431; 87086; 87468; 87469; 87478; 87484; 87798

== ENCOUNTER 2023-05-20 14:52 | Outpatient (AMB) | payer OTHER, SELFPAY ==
--- NOTE | 2023-05-20 15:01 | MHC.PC.OV ---
Vital Signs 05/20/23 15:02 Height 5 ft 7 in Weight 264 lb 6 oz BMI 41.4 BP 120/68 Blood Pressure Location Rt brachial Position Sitting Pulse 88 Pulse Source Pulse Oximeter Pulse Oximetry (%) 98 Oxygen Delivery Method Room Air Intake Visit Reasons: Annual PE Allergies No Known Allergies Allergy (Verified 05/20/23 15:03) Medication List - Last Reconciled 05/20/23 by WALTER Ramon- amoxicillin 500 mg PO TID 5 days aspirin 81 mg PO DAILY 90 days atorvastatin 10 mg PO BEDTIME betamethasone dipropionate 0.05% 1 appl topical BID PRN 30 days blood sugar diagnostic (FreeStyle Lite Strips) TID testing or as needed for hypo/hyperglycemia cetirizine (Zyrtec) 10 mg PO DAILY PRN colesevelam 625 mg PO BID dulaglutide 1.5 mg (0.5 mL) subcut QWEEK 90 days flu vac qs 2020(4 yr up)CD(PF) mL IM gabapentin 100 mg PO TID lancets (BD Ultra Fine Lancets) TID testing or as needed for hypo/hyperglycemia lisinopril 10 mg PO DAILY metformin 1,000 mg PO BID 90 days niacin ER 2,000 mg (2 x 1,000 mg) PO BEDTIME pioglitazone 30 mg PO DAILY venlafaxine ER 150 mg PO DAILY Tobacco use date assessed: 05/20/23 Dental Screening Dental Screen Date: 05/20/23 Did you have a dental visit in the last 12 months?: Yes Did you have a dental problem in the last 6 months where you did not have access to dental care?: No Was dental information given to patient?: Patient has dentist HPI Annual PE HPI Details Pt is here for a PE. Labs were already performed. Colon screen is up to date. Mammo is up to date. Pt is a diabetic, on an DIDIER and a statin. A1C in office today is 6.1. Microalbumin is up to date. Denies polyuria, polydipsia, and neuropathy. Pt denies any signs and symptoms of hypoglycemia and does know how to correct it. Eye exam is up to date. Pt has a family hx of osteoporosis. Will order bone density. Pt c/o bilat hand pain. Labs were ordered for joint pains, awaiting results. Will order XRs. Pt also c/o cervical neck pain. She denies any radicular symptoms down her upper extremities. Will order XR. PFSH Medical History (Reviewed 09/08/22 @ 17:34 by Johnathan Hancock [facility] Diabetes History of COVID-19 Pneumonia Sleep apnea Surgical History H/O tubal ligation History of carpal tunnel surgery Family History Father HTN (hypertension) Myocardial infarction CVD (cardiovascular disease) Mother Asthma Maternal Grandmother Lung cancer Maternal Aunt Lung cancer Smoker Social History Housing: Apartment Alcohol intake: never Patient Tobacco Use Status: Never used Tobacco e-Cigarette/Vaping Use: Never Used Second Hand Smoke Exposure: No Current occupational status: employed 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 Josesito Ulloa, Juana Calderon, Sushil Chavez and colleagues, with an educational sudheer from [employer]. Review of Systems Const Denies chills and Denies fever(s) Eyes Denies blurry vision ENT Denies vertigo, Denies dizziness and Denies sore throat Card Denies chest pain at rest, Denies chest pain with activity, Denies diaphoresis, Denies dyspnea and Denies dyspnea on exertion Resp Denies cough, Denies dyspnea, Denies dyspnea on exertion and Denies wheezing GI Denies abdominal pain, Denies melena, Denies hematochezia, Denies constipation, Denies diarrhea and Denies loose stools Denies hematuria Musc Denies numbness and Denies tingling Skin/Breast Denies lesions Neuro Denies vertigo, Denies dizziness, Denies numbness and Denies tingling Psych Denies anxiety, Denies depression, Denies homicidal ideation, Denies suicidal ideation and Denies other (substance abuse) Aller/Immun Denies wheezing Physical exam (Primary Care) Vital Signs: Last Vital Signs Pulse 88 05/20/23 15:02 BP 120/68 05/20/23 15:02 Pulse Ox 98 05/20/23 15:02 Oxygen Delivery Method Room Air 05/20/23 15:02 BMI result Body Mass Index 41.4 Tobacco/Smoking Status: Tobacco use Status Tobacco use date assessed 05/20/23 05/20/23 15:06 Patient Tobacco Use Status Never used Tobacco 05/20/23 15:06 e-Cigarette/Vaping Use Never Used 05/20/23 15:06 Thrive Assessment: Date of Thrive Assessment Date Thrive assessed 09/08/22 05/20/23 15:06 Const General: cooperative Nutritional Appearance: obese morbidly obese Orientation/consciousness: patient oriented x3 HENMT Head: Yes normal to inspection, Yes normocephalic and Yes atraumatic Ears: TM's normal bilaterally Eyes General: appearance normal, both eyes and all related structures Alignment and Position: alignment normal and position normal Neck Neck: Yes normal visual inspection and Yes no lymphadenopathy Thyroid: Thyroid normal Resp Effort & Inspection: normal respiratory effort Auscultation: clear to auscultation bilaterally Cardio Rate: regular rate Rhythm: regular rhythm Heart sounds: S1 normal heart sound present, S2 normal heart sound present and Murmur heart sound present systolic GI Palpation (GI): Soft to palpation and nontender Auscultation: normal bowel sounds Back/Spine/Pelvis Other: soreness of cervical neck with turning head side to side and neck flexion, no radicular symptoms, - spurlings Skin Rashes: no rashes Neuro General: patient oriented x3, moves all extremities, no focal motor deficits and deep tendon reflexes 2+ bilaterally Romberg Test: Negative Extrem Other: bilat feet: + sensation with use of monofilament, feet intact without lesions, no joint swelling of hands Psych Appearance: grossly normal Mental Status: mental status grossly normal Speech and movement: Normal speech and movement present Affect: normal affect Attitude: cooperative Thought process: Normal thought process present Thought content: Normal thought content present Insight: Good insight present (Psych) Judgement: Good judgement present (Psych) Results AMB Hemoglobin A1c AMB Hemoglobin A1c 6.1 % Last Edit by Daphney Blair CMA on 05/20/23 15:23 Immunizations pneumoc 20-hina conj-dip cr(PF) 0.5 mL IM syringe Performing Provider: JUSTIN Ramon Performing Location: [facility] Administered by: Daphney Blair CMA on 05/20/23 16:18 Dose Route Admin Location Dispensed Lot Number Expiration Date NDC Triage Assistant 0.5 mL IM Right Deltoid 0.5 mL [id number] 06/08/24 5748-8006-18 WYETH/PFIZER VIS Given Date VIS Provided VIS Publication Date 05/20/23 Single Vaccine 21 Eligibility Eligibility Date Funding Source Not [facility] Eligible 05/20/23 Private Results Reviewed Results Reviewed: Laboratory Last Values Hgb A1c (Clinic) 6.1 % (4.0-6.0) H 05/20/23 15:14 Assessment and Plan Assessment & Plan (1) Hx of osteoporosis: Code(s): Z87.39 - Personal history of other diseases of the musculoskeletal system and connective tissue Plan: Bone density (2) Bilateral hand pain: Code(s): M79.641 - Pain in right hand; M79.642 - Pain in left hand Plan: XRs ordered (3) Cervical neck pain with evidence of disc disease: Code(s): M50.90 - Cervical disc disorder, unspecified, unspecified cervical region Plan: XR ordered (4) Physical exam: Code(s): Z00.00 - Encounter for general adult medical examination without abnormal findings Plan The patient agreed to the use of a medical staff credentialing coordinator for this encounter. Scribed for JUSTIN Germain by Mariah Medel medical staff credentialing coordinator, on 05/20/2023 at 15:25 EST Orders: Orders XR cervical spine 2V Today M50.90 - Cervical disc disorder, unspecified, unspecified cervical region AMB EKG-In Office Today Z00.00 - Encounter for general adult medical examination without abnormal findings AMB Hemoglobin A1c Today E11.9 - Type 2 diabetes mellitus without complications XR DEXA axial skeleton Today Z87.39 - Personal history of other diseases of the musculoskeletal system and connective tissue XR hand LT 2V Today M79.641 - Pain in right hand, M79.642 - Pain in left hand XR hand RT 2V Today M79.641 - Pain in right hand, M79.642 - Pain in left hand Pneumococcal 20 Immunization Today Z23 - Encounter for immunization Coding Level of Care Code Est Pt Prev Care 40-64y(70229) Diagnoses Hx of osteoporosis Z87.39 Bilateral hand pain M79.641; M79.642 Cervical neck pain with evidence of disc disease M50.90 Physical exam Z00.00
[2023-05-20 15:02] VITALS: BP 120/68; PULSE 88; O2SAT 98; BMI 41.4
== END 2023-05-20 16:46 | disposition home or self-care (01) ==
PROVIDERS: PCP Nurse Practitioner Family; Visit Provider Nurse Practitioner Family
DX: Z00.00 Encounter for general adult medical examination without abnormal findings (principal); E11.9 Type 2 diabetes mellitus without complications; Z87.39 Personal history of other diseases of the musculoskeletal system and connective tissue; M79.641 Pain in right hand; Z23 Encounter for immunization; M79.642 Pain in left hand; M50.90 Cervical disc disorder, unspecified, unspecified cervical region
CPT/HCPCS: 83036; 90471; 90677; 99396

== ENCOUNTER 2023-06-11 14:48 | Outpatient (REF) | payer OTHER, SELFPAY ==
--- NOTE | ~2023-06-11 | MM_ITS ---
EXAMINATION: BONE DENSITOMETRY CLINICAL INDICATION: Personal history of other diseases of the musculoskeletal system. COMPARISON: This is the patient's baseline examination. TECHNIQUE: Using a [employer] DXA System (software version: 13.1) manufactured by [employer], dual-energy x-ray absorptiometry was performed of the lumbar spine and left hip. The images are of good technical quality. Summary results are attached. FINDINGS: LEFT FEMUR, NECK: BMD 0.942 g/cm2, Z-score -0.6, T-score -0.7, normal. LEFT FEMUR, TOTAL: BMD 0.935 g/cm2, Z-score -0.9, T-score -0.6, normal. AP SPINE L1-L4: BMD 1.281 g/cm2, Z-score 0.1, T-score 0.8, normal. IDENTIFIED RISK FACTORS: None listed. HISTORY OF FRACTURE: None listed. MEDICATIONS: Multivitamin. MM/XR DEXA axial skeleton IMPRESSION: 1. DIAGNOSIS: Normal bone density based on the lowest T-score value of -0.7 in the femoral neck applying World Health Organization criteria. 2. 10-YEAR FRACTURE RISK PREDICTION, FRAX: According to the guidelines, FRAX calculation should only be performed on patients in the osteopenia bone density category. Therefore, FRAX was not performed on this patient. 3. Treatment Recommendations: NOF guidelines recommend consideration for treatment in postmenopausal women and men age 50 and older presenting with the following: -A hip or vertebral (clinical or morphometric) fracture. -T-score less than or equal to -2.5 at the femoral neck or spine after appropriate evaluation to exclude secondary causes. -Low bone mass at the hip or spine and a 10-year fracture probability by FRAX of greater than or equal to 3% for hip fracture or greater than or equal to 20% for major osteoporotic fracture based on the [place] adapted WHO algorithm. 4. Other Recommendations: All treatment decisions require clinical judgment and consideration of individual patient factors, including patient preferences, comorbidities, previous drug use, risk factors not captured in the FRAX model (e.g. frailty, falls, vitamin D deficiency, increased bone turnover, interval significant decline in bone density) and possible under or overestimation of fracture risk by FRAX. FUTURE SCAN RECOMMENDATION: People with diagnosed cases of osteoporosis or at high risk for fracture should have regular bone mineral density tests. For patients eligible for Medicare, routine testing is allowed once every 2 years. The testing frequency can be increased to one year for patients who have rapidly progressing disease, those who are receiving or discontinuing medical therapy to restore bone mass, or have additional risk factors.
== END 2023-06-11 14:49 | disposition home or self-care (01) ==
LOC: HO.MAMMO 14:48
PROVIDERS: PCP Nurse Practitioner Family; Visit Provider Nurse Practitioner Family
DX: Z13.820 Encounter for screening for osteoporosis (principal); M81.0 Age-related osteoporosis without current pathological fracture; Z78.0 Asymptomatic menopausal state; E55.9 Vitamin D deficiency, unspecified; Z87.39 Personal history of other diseases of the musculoskeletal system and connective tissue
CPT/HCPCS: 77080

== ENCOUNTER 2023-08-30 09:45 | Outpatient (AMB) | payer OTHER, SELFPAY ==
[2023-08-30 10:38] VITALS: BP 120/64; PULSE 85; TEMP 37.4; O2SAT 100; BMI 40.9
--- NOTE | 2023-08-30 10:38 | MHC.OFFWIV ---
Intake Vital Signs 08/30/23 10:38 Height 5 ft 7 in Weight 261 lb 2 oz BMI 40.9 BP 120/64 Blood Pressure Location Rt brachial Position Sitting Pulse 85 Pulse Source Pulse Oximeter Temp 99.3 F Temp Source Oral Pulse Oximetry (%) 100 Oxygen Delivery Method Room Air Intake Visit Reasons: EP Cough, Wheezing, mucus [phone] Intake Note: pt is here for c.o cough, wheezing, with chest congestion. patient states at home covid test was negative and has been having these symptoms since wednesday. Patient Tobacco Use Status: Never used Tobacco Allergies No Known Allergies Allergy (Verified 08/30/23 10:39) Do you need a note to return to daycare/school/sports/work: Yes HPI HPI Comments History of Present Illness Details Patient presents to the walk in today with complaints of sinus congestion and wheezing for last 3 days Reports at work everyone sick with similar Has history of cough with wheezing, used alb MDI in past but no longer has MDI at home Patient denies fevers, palpitations, syncope, dizziness, vomiting, diarrhea, sore throat, ear pain Cough non-productive. Endorses sinus congestion with post nasal drip. Reports rib pain with coughing and states she heard some wheezing when she was lying down in bed Wheezing cleared when she coughed History of covid that progressed to PNA so she gets nervous with coughing [facility] History Diabetes History of COVID-19 Pneumonia Sleep apnea Surgical History H/O tubal ligation History of carpal tunnel surgery Family History Father HTN (hypertension) Myocardial infarction CVD (cardiovascular disease) Mother Asthma Maternal Grandmother Lung cancer Maternal Aunt Lung cancer Smoker Social History Housing: Apartment Alcohol intake: never Patient Tobacco Use Status: Never used Tobacco e-Cigarette/Vaping Use: Never Used Second Hand Smoke Exposure: No Current occupational status: employed 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 Answers questions appropriately. Fully engaged in examination. Skin: warm, dry, intact HEENT: TMs intact bilaterally, without erythema or exudate. Posterior pharynx without erythema or exudate. Sclera without icterus or injection. Cardiac: External chest normal in appearance. Respiratory: + dry cough. LSCTAB. Abdomen: without gross distension. Neurological: Oriented to person, place, time and situation. Thought process intact. Psychiatric: Appropriate mood and affect. Good judgment and insight. Assessment & Plan Assessment & Plan (1) URI (upper respiratory infection): Code(s): J06.9 - Acute upper respiratory infection, unspecified (2) Wheezing: Code(s): R06.2 - Wheezing Plan URI, no abx warranted. Benzonatate 100mg po bid as needed Albuterol MDI 1 inhalation QID as needed Rest, drink plenty of fluids, tylenol or motrin as needed. Follow up with pcp or in clinic for any new or worsening symptoms. Go to ER for shortness of breath, chest pain, palpitations, weakness, dizziness. Medications: New benzonatate 100 mg PO BID PRN 20 caps 0RF cough albuterol sulfate 90 mcg/actuation 1 inh inhalation QID PRN 6.7 grams 0RF shortness of breath or wheezing Coding Level of Care Code Est Pt Level 4 (01974) Diagnoses URI (upper respiratory infection) J06.9 Wheezing R06.2
== END 2023-08-30 11:34 | disposition home or self-care (01) ==
PROVIDERS: PCP Nurse Practitioner Family; Visit Provider Registered Nurse Emergency
DX: J06.9 Acute upper respiratory infection, unspecified (principal); R06.2 Wheezing
CPT/HCPCS: 99214

== ENCOUNTER 2023-10-07 11:17 | Outpatient (AMB) | payer OTHER, SELFPAY ==
[2023-10-07 11:31] VITALS: BP 110/64; PULSE 80; O2SAT 99; BMI 41.2
--- NOTE | 2023-10-07 11:31 | A.OFFPC_ITS ---
Vital Signs 10/07/23 11:31 Height 5 ft 7 in Weight 263 lb 4 oz BMI 41.2 BP 110/64 Blood Pressure Location Rt brachial Position Sitting Pulse 80 Pulse Source Pulse Oximeter Pulse Oximetry (%) 99 Oxygen Delivery Method Room Air Intake Visit Reasons: 4 mon follow up Intake Note: Pt is here to follow up for her DM Allergies No Known Allergies Allergy (Verified 10/07/23 11:34) Tobacco use date assessed: 10/07/23 Dental Screening Dental Screen Date: 10/07/23 Did you have a dental visit in the last 12 months?: Yes Did you have a dental problem in the last 6 months where you did not have access to dental care?: No Was dental information given to patient?: Patient has dentist HPI 4 mon follow up HPI Details Pt is a diabetic, on an DIDIER and a statin. A1C in office today is 6.3. Microalbumin is up to date. Denies polyuria, polydipsia, and neuropathy. Pt denies any signs and symptoms of hypoglycemia and does know how to correct it. Pt does not check her blood sugar. Eye exam is up to date. Pt offers no others questions or concerns. 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 1. Little interest or pleasure in doing things: not at all 2. Feeling down, depressed, or hopeless: not at all 3. Trouble falling or staying asleep, or sleeping too much: not at all 4. Feeling tired or having little energy: not at all 5. Poor appetite or overeating: not at all 6. Feeling bad about yourself - or that you are a failure or have let yourself or your family down: not at all 7. Trouble concentrating on things, such as reading the newspaper or watching television: not at all 8. Moving or speaking so slowly that other people could have noticed. Or the opposite - being so fidgety or restless that you have been moving around a lot more than usual: not at all 9. Thoughts that you would be better off or of hurting yourself in some way: not at all Total score: 0 Source: Developed by Drs. Josesito Ulloa, Juana Calderon, Sushil Chavez and colleagues, with an educational sudheer from [employer]. Thrive Questionnaire Date Thrive assessed: 10/07/23 I am a: Patient What is your living situation today?: I have a steady place to live Within the past 12 months, did the food you bought not last and you didn't have the money to get more?: Never true Within the past 12 months, did you worry whether your food would run out before you got money to buy more?: Never true Do you have trouble paying for medicines?: No Do you have trouble getting transportation to medical appointments?: No Do you have trouble paying your heating and electricity bill?: No Do you have trouble taking care of your child, family member or friend?: No Do you have trouble with day-to-day activities such as bathing, preparing meals, shopping, managing finances, etc.?: No Are you currently unemployed and looking for a job?: No Are you interested in more education?: No Currently or been in a relationship where the following occur: no concerns reported THRIVE Score: 0 LETITIA-7 AMB Questionnaire LETITIA-7 Date LETITIA - 7 assessed: 10/07/23 Feeling nervous, anxious, or on edge: 0 = Not at all Not being able to stop or control worryin = Not at all Worrying too much about different things: 0 = Not at all Trouble relaxin = Not at all Being so restless that it is hard to sit still: 0 = Not at all Becoming easily annoyed or irritable: 0 = Not at all Feeling afraid as if something awful might happen: 0 = Not at all Total LETITIA-7 score (0-4 normal; 5-9 mild; 10-14 moderate; 15-21 severe): 0 Source: Developed by Drs. Josesito Ulloa, Juana Calderon, Sushil Chavez and colleagues, with an educational sudheer from [employer]. LETITIA-7 Assessment Billing LETITIA-7 Assessment Tool: LETITIA-7 Assessment 46000 Review of Systems Const Reports as per HPI Physical exam (Primary Care) Vital Signs: Last Vital Signs Pulse 80 10/07/23 11:31 BP 110/64 10/07/23 11:31 Pulse Ox 99 10/07/23 11:31 Oxygen Delivery Method Room Air 10/07/23 11:31 BMI result Body Mass Index 41.2 Tobacco/Smoking Status: Tobacco use Status Tobacco use date assessed 10/07/23 10/07/23 11:37 Patient Tobacco Use Status Never used Tobacco 10/07/23 11:31 e-Cigarette/Vaping Use Never Used 10/07/23 11:31 PHQ-9: PHQ-9 Score PHQ-9: Total score 0 10/07/23 11:50 Thrive Assessment: Date of Thrive Assessment Date Thrive assessed 10/07/23 10/07/23 11:47 Currently or been in a relationship where the following occur: no concerns reported Const General: cooperative Nutritional Appearance: obese morbidly obese Orientation/consciousness: patient oriented x3 Resp Effort & Inspection: normal respiratory effort Auscultation: clear to auscultation bilaterally Cardio Rate: regular rate Rhythm: regular rhythm Heart sounds: S1 normal heart sound present, S2 normal heart sound present and Murmur heart sound present systolic Neuro General: patient oriented x3 Extrem Other: bilat feet: + sensation with use of monofilament, feet intact Psych Appearance: grossly normal Mental Status: mental status grossly normal Speech and movement: Normal speech and movement present Affect: normal affect Attitude: cooperative Thought process: Normal thought process present Thought content: Normal thought content present Insight: Good insight present (Psych) Judgement: Good judgement present (Psych) Results AMB Hemoglobin A1c AMB Hemoglobin A1c 6.3 % Last Edit by Daphney Blair CMA on 10/07/23 11: 55 Assessment and Plan Assessment & Plan (1) Diabetes: Code(s): E11.9 - Type 2 diabetes mellitus without complications Plan: continue same plan, no med changes. Plan The patient agreed to the use of a health care / medical job titles for this encounter. Scribed for JUSTIN Germain by Mariah Medel health care / medical job titles, on 10/07/2023 at 11:45 EST. Orders: Orders AMB Hemoglobin A1c Today E11.9 - Type 2 diabetes mellitus without complications Comprehensive [place]. Panel Fast Today E11.9 - Type 2 diabetes mellitus without complications TSH reflex Free T4 Today E11.9 - Type 2 diabetes mellitus without complications UA CC w/rflx Micro + Cult Today E11.9 - Type 2 diabetes mellitus without complications Complete Blood Count Auto Diff Today E11.9 - Type 2 diabetes mellitus without complications Lipid Panel Today E11.9 - Type 2 diabetes mellitus without complications Coding Level of Care Code Est Pt Level 3 (72925) Diagnoses Diabetes E11.9 Additional Codes LETITIA-7 Assessment Billing - LETITIA-7 Assessment Tool: LETITIA-7 Assessment [id number] ([id number])
== END 2023-10-07 13:06 | disposition home or self-care (01) ==
PROVIDERS: PCP Nurse Practitioner Family; Visit Provider Nurse Practitioner Family
DX: E11.9 Type 2 diabetes mellitus without complications (principal)
CPT/HCPCS: 83036; 99213

== ENCOUNTER 2024-01-15 09:25 | Outpatient (REF) | payer OTHER, SELFPAY ==
[2024-01-15 11:08] LABS: MANUAL DIFF FLAG NO
[2024-01-15 11:11] LABS: Basophils Percent Auto 0.7 % (0-2); Eosinophils Absolute Auto 0.1 X10*3/uL (0.0-0.4); Hemoglobin 12.6 g/dl (12.0-16.0); Imm Gran Abs Auto 0.01 X10*3/uL (0.00-0.03); Imm Gran Pct Auto 0.2 % (0.0-0.4); Lymphocytes Absolute Auto 2.1 X10*3/uL (1.2-4.9); Lymphocytes Percent Auto 35.3 % (20-40); Mean Corpuscular HGB Conc 34.1 g/dl (31.0-35.0); Mean Corpuscular Hemoglobin 31.7 pg (27.0-33.0); Mean Platelet Volume 9.5 fL (9.4-12.3); Monocytes Absolute Auto 0.4 X10*3/uL (0.1-1.2); Monocytes Percent Auto 6.1 % (2-11); Neutrophils Absolute Auto 3.4 x10*3/uL (2.0-8.3); Neutrophils Percent Auto 55.7 % (45-73); Platelet Count 236 X10*3/uL (160-400); Red Blood Count 3.98 X10*6/uL (4.20-5.50); Red Cell Distribution Width 12.3 % (11.0-16.0); White Blood Count 6.1 X10*3/uL (4.8-10.8)
[2024-01-15 11:31] LABS: Alanine Aminotransferase 35 U/L (0-31); Albumin Level 4.2 g/dL (3.5-5.0); Alkaline Phosphatase 99 U/L (39-117); Anion Gap 15 (12-20); Aspartate Amino Transferase 42 U/L (5-31); Bilirubin Total 0.6 mg/dL (0.0-1.0); Blood Urea Nitrogen 11 mg/dL (9-16); Calcium 10.6 mg/dL (8.4-10.2); Carbon Dioxide 24 mmol/L (22-29); Chloride 104 mmol/L (96-108); Cholesterol 166 mg/dL (<200); Estimated Glomerular Filt Rate > 60; Glucose Fasting 118 mg/dL (60-99); HDL Cholesterol 53 mg/dL (>40); LDL Cholesterol Calculated 97 mg/dL (<100); Potassium 4.2 mmol/L (3.3-5.1); Sodium 139 mmol/L (135-145); Total Protein 7.9 g/dL (6.5-8.0); Triglycerides 82 mg/dL (<150)
[2024-01-15 11:49] LABS: TSH reflex Free T4 0.84 uIU/mL (0.32-4.0)
== END 2024-01-15 09:26 | disposition home or self-care (01) ==
LOC: HO.HMGCLDS 09:25
PROVIDERS: PCP Nurse Practitioner Family; Visit Provider Nurse Practitioner Family
DX: E11.9 Type 2 diabetes mellitus without complications (principal)
CPT/HCPCS: 36415; 80053; 80061; 84443; 85025

== ENCOUNTER 2024-01-20 12:52 | Outpatient (AMB) | payer OTHER, SELFPAY ==
--- NOTE | 2024-01-20 12:56 | MHC.PC.OV ---
Vital Signs 01/20/24 13:00 Height 5 ft 7 in Weight 265 lb BMI 41.5 BP 130/78 Blood Pressure Location Rt brachial Position Sitting Pulse 86 Pulse Source Pulse Oximeter Pulse Oximetry (%) 98 Oxygen Delivery Method Room Air Intake Visit Reasons: 4 month follow up Intake Note: Patient here for diabetes f/u Allergies No Known Allergies Allergy (Verified 01/20/24 13:01) Medication List - Last Reconciled 01/20/24 by JUSTIN Ramon albuterol sulfate 90 mcg/actuation 1 inh inhalation QID PRN aspirin 81 mg PO DAILY atorvastatin 10 mg PO BEDTIME blood sugar diagnostic (FreeStyle Lite Strips) TID testing or as needed for hypo/hyperglycemia cetirizine (Zyrtec) 10 mg PO DAILY PRN colesevelam 625 mg PO BID gabapentin 100 mg PO TID lancets (BD Ultra Fine Lancets) TID testing or as needed for hypo/hyperglycemia lisinopril 10 mg PO DAILY metformin 1,000 mg PO BID niacin ER 2,000 mg (2 x 1,000 mg) PO BEDTIME pioglitazone 30 mg PO DAILY semaglutide 2 mg (0.75 mL) subcut QWEEK venlafaxine ER 150 mg PO DAILY Tobacco use date assessed: 10/07/23 Dental Screening Dental Screen Date: 10/07/23 HPI 4 month follow up HPI Details Pt is a diabetic, on an DIDIER and a statin. A1C in office today is 6.5. Due for microalbumin in the near future. Denies polyuria, polydipsia, and neuropathy. Pt denies any signs and symptoms of hypoglycemia and does know how to correct it. Eye exam is up to date. Pt c/o pain to her left forearm. She also reports numbness of her left hand. Will order EMG/nerve conduction testing. Pt also c/o cervical neck pain with radicular symptoms down her LUE. Will order XR. 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 Josesito Ulloa, Juana Calderon, Sushil Chavez and colleagues, with an educational sudheer from [facility] [employer]. Review of Systems Const Reports as per HPI Physical exam (Primary Care) Vital Signs: Last Vital Signs Pulse 86 01/20/24 13:00 BP 130/78 01/20/24 13:00 Pulse Ox 98 01/20/24 13:00 Oxygen Delivery Method Room Air 01/20/24 13:00 BMI result Body Mass Index 41.5 Tobacco/Smoking Status: Tobacco use Status Tobacco use date assessed 10/07/23 01/20/24 12:57 Patient Tobacco Use Status Never used Tobacco 01/20/24 12:57 e-Cigarette/Vaping Use Never Used 01/20/24 12:57 Thrive Assessment: Date of Thrive Assessment Date Thrive assessed 10/07/23 01/20/24 12:57 Const General: cooperative Nutritional Appearance: obese morbidly obese Orientation/consciousness: patient oriented x3 Resp Effort & Inspection: normal respiratory effort Auscultation: clear to auscultation bilaterally Cardio Rate: regular rate Rhythm: regular rhythm Heart sounds: S1 normal heart sound present and S2 normal heart sound present Back/Spine/Pelvis Other: - spurlings, neck discomfort with radiculopathy with turning head to the left and right Neuro General: patient oriented x3 Extrem Other: bilat feet: + sensation with use of monofilament, feet intact, + phalens, + tinels Psych Appearance: grossly normal Mental Status: mental status grossly normal Speech and movement: Normal speech and movement present Affect: normal affect Attitude: cooperative Thought process: Normal thought process present Thought content: Normal thought content present Insight: Good insight present (Psych) Judgement: Good judgement present (Psych) Results AMB Hemoglobin A1c AMB Hemoglobin A1c 6.5 % Last Edit by MARIELLA Emerson on 01/20/24 13:23 Results Reviewed Results Reviewed: Laboratory Last Values Hgb A1c (Clinic) 6.5 % (4.0-6.0) H 01/20/24 13:22 Assessment and Plan Assessment & Plan (1) Numbness of left hand: Code(s): R20.0 - Anesthesia of skin Plan: EMG/nerve conduction testing ordered (2) Left forearm pain: Code(s): M79.632 - Pain in left forearm Plan: EMG/nerve conduction testing ordered (3) Cervical neck pain with evidence of disc disease: Code(s): M50.90 - Cervical disc disorder, unspecified, unspecified cervical region Plan: XR ordered Plan The patient agreed to the use of a emergency medicine medical director for this encounter. Scribed for WALTER Germain-DERIK by Mariah Medel emergency medicine medical director, on 01/20/2024 at 13:15 EST. Orders: Orders NE electromyogram (EMG) Today M79.632 - Pain in left forearm, R20.0 - Anesthesia of skin NE nerve conduction velocity Today M79.632 - Pain in left forearm, R20.0 - Anesthesia of skin AMB Hemoglobin A1c Today Z13.9 - Encounter for screening, unspecified XR cervical spine 2V Today M50.90 - Cervical disc disorder, unspecified, unspecified cervical region Medications: New fluorouracil 0.5% 1 appl topical BEDTIME 30 grams 0RF 4 weeks Coding Level of Care Code Est Pt Level 3 (61105) Diagnoses Numbness of left hand R20.0 Left forearm pain M79.632 Cervical neck pain with evidence of disc disease M50.90
[2024-01-20 13:00] VITALS: BP 130/78; PULSE 86; O2SAT 98; BMI 41.5
== END 2024-01-20 14:52 | disposition home or self-care (01) ==
PROVIDERS: PCP Nurse Practitioner Family; Visit Provider Nurse Practitioner Family
DX: R20.0 Anesthesia of skin (principal); M79.632 Pain in left forearm; M50.90 Cervical disc disorder, unspecified, unspecified cervical region; E11.9 Type 2 diabetes mellitus without complications
CPT/HCPCS: 83036; 99213

== ENCOUNTER 2024-01-20 13:32 | Outpatient (REF) | payer OTHER, SELFPAY ==
--- NOTE | ~2024-01-20 | XR_ITS ---
EXAMINATION: XR CERVICAL SPINE CLINICAL INFORMATION: Cervical disc disease. COMPARISON: Radiographs dated 04/28/2010. TECHNIQUE: Frontal, lateral and swimmer's views of the cervical spine were obtained. FINDINGS: There is mild reversal of the normal lordotic curvature. At C4-C5, there is very mild disc space narrowing, with endplate arthropathy. At C5-C6, there is moderate disc space narrowing, with endplate arthropathy. The remaining disc spaces are well-maintained. No acute fracture or spondylolisthesis is seen. The posterior elements are intact. The paravertebral soft tissues are unremarkable. XR/XR cervical spine 2V IMPRESSION: 1. There is mild degenerative disc disease at C4-C5, and moderate degenerative disc disease is seen at C5-C6. 2. There is mild reversal of the normal lordotic curvature, which can be associated with muscle spasm.
== END 2024-01-20 13:33 | disposition home or self-care (01) ==
LOC: HO.HMGCX 13:32
PROVIDERS: PCP Nurse Practitioner Family; Visit Provider Nurse Practitioner Family
DX: M50.90 Cervical disc disorder, unspecified, unspecified cervical region (principal)
CPT/HCPCS: 72040

== ENCOUNTER 2024-02-01 08:09 | Outpatient (REF) | payer OTHER, SELFPAY ==
--- NOTE | 2024-02-01 08:19 | EMG_ITS ---
Left median and ulnar motor and sensory studies were performed. Left radial and median and lateral antecubital brachial sensory studies were performed and paraspinal muscles were tested with a needle. IMPRESSION: 1. Mild left median neuropathy across carpal tunnel. 2. Mild left ulnar neuropathy across cubital tunnel. MD RUPALI Pierce/EDGARD / [phone]
== END 2024-02-01 08:10 | disposition home or self-care (01) ==
LOC: HO.NEURO 08:09
PROVIDERS: PCP Nurse Practitioner Family; Visit Provider Nurse Practitioner Family
DX: M79.632 Pain in left forearm (principal); R20.0 Anesthesia of skin
CPT/HCPCS: 95886; 95910

== ENCOUNTER 2024-02-17 07:46 | Outpatient (AMB) | payer OTHER, SELFPAY ==
--- NOTE | 2024-02-17 07:07 | A.OFFPC_ITS ---
Intake Visit Reasons: review Xray results Allergies No Known Allergies Allergy (Verified 01/20/24 13:01) Medication List - Last Reconciled 02/17/24 by JUSTIN Ramon albuterol sulfate 90 mcg/actuation 1 inh inhalation QID PRN aspirin 81 mg PO DAILY atorvastatin 10 mg PO BEDTIME blood sugar diagnostic (FreeStyle Lite Strips) TID testing or as needed for hypo/hyperglycemia cetirizine (Zyrtec) 10 mg PO DAILY PRN colesevelam 625 mg PO BID fluorouracil 5% 1 appl topical BEDTIME 4 weeks gabapentin 100 mg PO TID lancets (BD Ultra Fine Lancets) TID testing or as needed for hypo/hyperglycemia lisinopril 10 mg PO DAILY meloxicam 15 mg PO DAILY PRN 30 days metformin 1,000 mg PO BID niacin ER 2,000 mg (2 x 1,000 mg) PO BEDTIME pioglitazone 30 mg PO DAILY semaglutide 2 mg (0.75 mL) subcut QWEEK venlafaxine ER 150 mg PO DAILY Tobacco use date assessed: 10/07/23 Dental Screening Dental Screen Date: 10/07/23 HPI review Xray results HPI Details Pt had recent EMG/nerve conduction testing which showed mild left median neuropathy across carpal tunnel. Mild left ulnar neuropathy across cubital tunnel. Will refer to ortho (hand specialist). Recommended wrist brace at night and wrapping a towel around her arm (elbow) to help keep her arm straight. Pt also had a recent cervical spine XR which showed mild degenerative disc disease at C4-C5, and moderate degenerative disc disease is seen at C5-C6. There is mild reversal of the normal lordotic curvature, which can be associated with muscle spasm. Will refer to [facility]. Will also send meloxicam. Denies fever, chills, and dizziness. 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 Josesito Ulloa, Juana Calderon, Sushil Chavez and colleagues, with an educational sudheer from [employer]. Review of Systems Const Reports as per HPI Physical exam (Primary Care) Tobacco/Smoking Status: Tobacco use Status Tobacco use date assessed 10/07/23 02/17/24 07:10 Patient Tobacco Use Status Never used Tobacco 02/17/24 07:10 e-Cigarette/Vaping Use Never Used 02/17/24 07:10 Thrive Assessment: Date of Thrive Assessment Date Thrive assessed 10/07/23 02/17/24 07:10 Const General: cooperative Orientation/consciousness: patient oriented x3 Neuro General: patient oriented x3 Psych Appearance: grossly normal Mental Status: mental status grossly normal Speech and movement: Clear speech present Affect: normal affect Attitude: cooperative Thought process: Normal thought process present Thought content: Normal thought content present Insight: Good insight present (Psych) Judgement: Good judgement present (Psych) Telehealth Telehealth Telehealth Platform: [facility] Location of provider rendering services: practice address Location of patient: address on file Patient Identification confirmed using: Name, : Yes Telehealth method: video Patient verbally consented to treatment: Yes Patient verbally consented to billing insurance company: Yes Patient informed of any privacy concerns related to visit: Yes Minutes spent on Phone/Video with Pt.: 10 Assessment and Plan Assessment & Plan (1) Cubital tunnel syndrome: Code(s): G56.20 - Lesion of ulnar nerve, unspecified upper limb Plan: Referred to hand specialist, recommended wrist brace and wrapping a towel around elbow at night (2) Carpal tunnel syndrome: Code(s): G56.00 - Carpal tunnel syndrome, unspecified upper limb Plan: Referred to hand specialist, recommended wrist brace and wrapping a towel around elbow at night (3) Degenerative cervical disc: Code(s): M50.30 - Other cervical disc degeneration, unspecified cervical region Plan: Referred to [facility], meloxicam sent Plan The patient agreed to the use of a medical administrative assistant for this encounter. Scribed for JUSTIN Germain by Mariah Medel medical administrative assistant, on 02/17/2024 at 07:10 EST. Orders: Referrals Orthopedics Referral G56.00 - Carpal tunnel syndrome, unspecified upper limb, G56.20 - Lesion of ulnar nerve, unspecified upper limb Sports Medicine Referral M50.30 - Other cervical disc degeneration, unspecified cervical region Medications: New meloxicam 15 mg PO DAILY 30 days PRN 30 tabs 1RF pain Coding Level of Care Code Tele Est Pt Level 3 (35765) Diagnoses Cubital tunnel syndrome G56.20 Carpal tunnel syndrome G56.00 Degenerative cervical disc M50.30
== END 2024-02-17 10:54 | disposition home or self-care (01) ==
LOC: HO.HMGC 07:46
PROVIDERS: PCP Nurse Practitioner Family; Visit Provider Nurse Practitioner Family
DX: G56.20 Lesion of ulnar nerve, unspecified upper limb (principal); G56.00 Carpal tunnel syndrome, unspecified upper limb; M50.30 Other cervical disc degeneration, unspecified cervical region
CPT/HCPCS: 99213

== ENCOUNTER 2024-03-09 11:07 | Outpatient (AMB) | payer OTHER, SELFPAY ==
[2024-03-09 11:13] VITALS: BP 114/60; PULSE 91; TEMP 36.8; O2SAT 98; BMI 41.0
--- NOTE | 2024-03-09 11:13 | MHC.OFFWIV ---
Intake Vital Signs 03/09/24 11:13 Height 5 ft 7 in Weight 262 lb BMI 41.0 BP 114/60 Blood Pressure Location Rt brachial Position Sitting Pulse 91 Pulse Source Pulse Oximeter Temp 98.3 F Temp Source Oral Pulse Oximetry (%) 98 Oxygen Delivery Method Room Air Intake Visit Reasons: EP ?Sinus Infection Intake Note: pt c/o sinus congestion and pain. Started a week ago Patient Tobacco Use Status: Never used Tobacco Allergies No Known Allergies Allergy (Verified 03/09/24 11:13) Do you need a note to return to daycare/school/sports/work: No HPI EP ?Sinus Infection HPI Details This note is constructed using voice recognition software. While every effort has been made to ensure accuracy, deck steward errors may have been included. The patient is a 53 year old female who presents to the clinic today with concerns for sinus infection. She notes that she had a viral illness in the last 2 weeks, and then developed sinus congestion in the maxilla region, left more than right. She has been trying a decongestant which seemed to actually dried out at 1st but then seemed to make the symptoms worse. She denies fever, chills, cough, shortness of breath. She has tested negative for COVID at home. She had exposure to her grandchild who had a recent URI. She also reports significant pressure-like sensation into the teeth, particularly on the left side. 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 Cognitive needs: No Hearing needs: No Vision needs: No Review of Systems Const All systems reviewed & are unremarkable except as noted in HPI and below Physical Exam Vital Signs: Last Vital Signs Temp 98.3 F 03/09/24 11:13 Pulse 91 03/09/24 11:13 BP 114/60 03/09/24 11:13 Pulse Ox 98 03/09/24 11:13 Oxygen Delivery Method Room Air 03/09/24 11:13 BMI result Body Mass Index 41.0 Const General: cooperative, healthy appearing, comfortable and no acute distress Orientation/consciousness: patient oriented x3 Limitations: no limitations HEENT Head: Yes normal to inspection Ears: hearing grossly normal bilaterally, external ears normal and TM's normal bilaterally General nose exam: Normal external nose present, Normal nares present and Nasal discharge present purulent on the left Face and sinus: Yes normal facial exam and Yes sinus tenderness (Maxillary bilaterally, left more than right) Mouth: Normal oral and palatal mucosa present and moist mucous membranes Throat: Yes posterior oropharynx normal, Yes tonsils normal and Yes uvula midline Eyes General: appearance normal, both eyes and all related structures Neck Neck: Yes normal visual inspection Resp Effort & Inspection: normal respiratory effort, able to speak in complete sentences, Actively coughing, no respiratory distress, not tachypneic, no tripod positioning and no use of accessory muscles Auscultation: clear to auscultation bilaterally Cardio Jugular venous distension: no JVD Rate: regular rate Rhythm: regular rhythm Heart sounds: S1 normal heart sound present, S2 normal heart sound present, no click, no gallops, no murmurs and no rubs Skin General skin exam: no rashes or lesions noted, elasticity normal and turgor normal Neuro General: patient oriented x3 Extrem General: Yes normal to inspection and Yes no clubbing, cyanosis or edema Assessment & Plan Assessment & Plan (1) Sinusitis, acute maxillary: Code(s): J01.00 - Acute maxillary sinusitis, unspecified Qualifiers: Recurrence: non-recurrent Qualified Code(s): J01.00 - Acute maxillary sinusitis, unspecified Plan: History and physical examination consistent with likely acute bacterial rhinosinusitis. We will treat with antimicrobial therapy. Advised supportive measures at home including sinus rinse, increase hydration, humidification. Advised follow up with worsening symptoms or failure to resolve. NSAIDs advised for pain management. Plan See above for full details and plan. Medications: New amoxicillin-pot clavulanate 875-125 mg 1 tab PO BID 7 days 14 tabs 0RF Coding Level of Care Code Est Pt Level 3 (05472) Diagnoses Acute non-recurrent maxillary sinusitis J01.00 Recurrence: non-recurrent
== END 2024-03-09 11:52 | disposition home or self-care (01) ==
PROVIDERS: PCP Nurse Practitioner Family; Visit Provider Registered Nurse
DX: J01.00 Acute maxillary sinusitis, unspecified (principal)
CPT/HCPCS: 99213

== ENCOUNTER 2024-03-13 15:35 | Outpatient (AMB) | payer OTHER, SELFPAY ==
--- NOTE | 2024-03-13 15:37 | A.OFFVIS_ITS ---
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 EMG done on 02/01/24. Hx of right CTR more than 5 years. She states her numbness is in all her fingers. Patient mentions that her numbness is worse at night and her numbness is off and on through out the day. She states that her numbness and tingling has been going for a couple months now. 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 Patient is status post right carpal tunnel release approximately 5 years ago, and she reports that she was very satisfied with this procedure and would like to pursue treatment options on the left side as well. Patient reports that her numbness and tingling are intermittent, but daily, and worse at night with associated pain. Patient has been using night braces for relief of night sym ptoms, and reports that this does help, although minimally. Patient reports that sensation is normal at this time. The patient reports that her entire left hand goes numb, but states that she is unsure if her small finger actually goes numb during her numbness episodes. The patient also reports that experiences significant pain on the lateral aspect of her left elbow, particularly when attempting to lift things. No other acute complaints or concerns at this time [facility] Medical History History of COVID-19 Sleep apnea Pneumonia Diabetes Surgical History H/O tubal ligation History of carpal tunnel surgery Family History Father HTN (hypertension) Myocardial infarction CVD (cardiovascular disease) Mother Asthma Maternal Grandmother Lung cancer Maternal Aunt Lung cancer Smoker Social History (Reviewed 03/13/24 @ 15:41 by Marty Peters Housing: Apartment Alcohol intake: never Patient Tobacco Use Status: Never used Tobacco e-Cigarette/Vaping Use: Never Used Second Hand Smoke Exposure: No Current occupational status: employed 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 Cognitive needs: No Hearing needs: No Vision needs: No Review of Systems Const All systems reviewed & are unremarkable except as noted in HPI and below Physical Exam Vital Signs: BMI result Body Mass Index 41.0 Const Other: Patient is alert, oriented, cooperative, and in no acute distress HEENT Head: Yes normocephalic and Yes atraumatic Resp Effort & Inspection: normal respiratory effort and able to speak in complete sentences Cardio Jugular venous distension: no JVD Neuro General: gait normal Cognition (Neuro): normal cognition Extrem Other: Patient is alert, oriented, and in no acute distress. Neuro: Median, ulnar, radial nerves motor and sensory intact and sensation is normal to the tips of all digits. Vascular: Cap refill brisk Pain: Patient reports no pain in the left hand at this time There is significant tenderness to palpation about the lateral epicondyle of the left elbow ROM: Range of motion about the left hand, wrist, elbow full and intact Patient is able to make a closed fist Good finger cross Skin: No lacerations or abrasions. General: No ecchymosis, erythema, or evidence of infection. Positive Cozen's test in the left Negative Tinel's test at the wrist and elbow on the left Psych: Appears grossly normal Affect normal Attitude cooperative Psych Appearance: grossly normal Mental Status: mental status grossly normal Results Reviewed Results Reviewed: IMPRESSION: 1. Mild left median neuropathy across carpal tunnel. 2. Mild left ulnar neuropathy across cubital tunnel. Assessment & Plan Assessment & Plan (1) Lateral epicondylitis of left elbow: Code(s): M77.12 - Lateral epicondylitis, left elbow Category: Medical Plan 1. Carpal tunnel syndrome, left 2. Cubital tunnel syndrome, left Symptoms intermittent, but daily, worse at night I educated the patient about the condition. I discussed both operative and nonoperative treatment options. The patient would like to proceed with surgery. The risks and benefits of operative treatment were discussed with the patient and the patient wishes to proceed with surgery. These risks include, but are not limited to, risk of damage to blood vessels, nerves, tendons, infection, recurrence, incomplete relief of preoperative symptoms, persistent pain, possible need for further surgery, and the risks associated with regional blocks and/or anesthesia. Plan is to take the patient to the operating room at some point in the next few weeks for the following procedures: 1. Cubital tunnel syndrome release, left 2. Carpal tunnel syndrome release, left, under general anesthesia All of the preoperative paperwork including the consent was discussed today. All of the patient's questions were answered in the clinic today. The patient understands that they will be in contact with our surgical supply assistant to discuss scheduling their procedure. Patient is advised that over the next 1-2 weeks, during any occurrences of numbness in the left hand, she should test the small finger to see if it is actually going numb along with the rest of the hand. If it is not, she should call our office, and cancel the cubital tunnel syndrome part of her procedure, as this will allow the procedure to then be done under local anesthesia, and avoid the additional risks of general anesthesia as well as a cubital tunnel syndrome release. Patient reports diabetes, last A1c approximately 6.5 blood thinners, asthma, heart issues, lung issues, kidney issues, or current smoking. 3. Lateral epicondylitis, left Patient is referred to occupational therapy for treatment of lateral epicondylitis Patient is informed that this can take weeks to months to resolve, even with occupational therapy Patient is amenable to this Patient will follow-up preoperatively for reassessment, sooner with any acute concerns Orders: Orders OT Evaluation and Treatment 03/13/24 M77.12 - Lateral epicondylitis, left elbow Coding Level of Care Code New Pt Level 4 (67299) Diagnoses Lateral epicondylitis of left elbow M77.12
[2024-03-13 15:42] VITALS: BMI 41.0
== END 2024-03-13 16:07 | disposition home or self-care (01) ==
PROVIDERS: PCP Nurse Practitioner Family
DX: M77.12 Lateral epicondylitis, left elbow (principal)
CPT/HCPCS: 99204

== ENCOUNTER → 2024-03-13 15:35 | Outpatient (BNVA) | payer OTHER, SELFPAY | PROVIDERS: PCP Nurse Practitioner Family ==

== ENCOUNTER 2024-05-05 07:00 | Outpatient (RCR) | payer OTHER, SELFPAY ==
--- NOTE | 2024-03-30 11:06 | MHC.OT.OEV ---
[address] [phone] F: [phone] Occupational Therapy Evaluation Patient Name: Jerri Engel Diagnosis: (L)Lateral Epicondylitis Date of Onset: 09/09/23 Date of Surgery: Attending Provider: Kosta Markham Prescribed Treatment: MD Follow Up Appointment: History of Current Condition: Patient is a 53 y/o right dominate who was referred to skilled OT with a diagnosis of (L)lateral epicondylitis. She reported symptoms began approximately 6 months ago and has progressively gotten worse. She reports a 6/10 pain constantly and numbness/tingling throughout the day but is worse at night, has 1 night brace and will have surgery Sept for the for her CTS. 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 She lives with he 2 adult kids and lives on the second floor of an apartment. She reports PLOF as (I)ADLs/ IADLs. She has a grandson (10 months) which is now becoming difficult to hold him as well as lifting other items. She did report that she overuses her (L)arm because she had a CTR about 15 years ago, since then she does not use that arm as much. Significant Medical History: DM II Precautions/Contraindications: Patient Goals: For the arm to feel better Hand Dominance: Right Observations: QuickDASH Score: 52.3 Prior Level of Function and Occupation Self Care, Employment, Leisure: (I)ADLs/IADLs development disability specialist No hobbies Living Situation, Family and/or Social Support: Lives with 2 adult children and grandchild Current Level of Function and Occupation Self Care, Employment, Leisure: (I)ADLs, min(A) IADLs Sleep: wake up during the night because of the pain Driving: Vision: Balance: Pain Assessment Pain Score: 6 Pain Scale Used: Numeric (0 - 10) Pain Location and Description: 6/10 consistantly Aggravating Factors: Alleviating Factors: Meloxicam for neck pain, heating pack Skin and Soft Tissue Assessment Skin and Soft Tissue: Comments: skin intact tissue appears tight when palpated Nerve assessment Ulnar Nerve: Median Nerve: Radial Nerve: Left Impaired Comments: Sensory Assessment Temperature: Light Touch: Proprioception: Vibration: Comments: Monofilament Test=WFL Edema Assessment Upper Extremity: Lower Extremity: Comments: edema Dexterity Assessment Dexterity: Comments: Functional Dexterity Test= WFL (L)26.97seconds Special Tests Comments: (+)Tinel's sign (+) Cozen's Test (+)Mill's test AROM(PROM) Strength Cervical Cervical Flexion: Cervical Extension: Cervical Lateral Flexion: Cervical Rotation: Comments: Shoulder Flexion: Extension: Abduction: Internal Rotation: External Rotation: Comments: WFL Flexion: Extension: Abduction: Internal Rotation: External Rotation: Comments: 4/5 Elbow Flexion: Extension: Pronation: Supination: Comments: WFL Flexion: Extension: Pronation: Supination: Comments: 4/5 Wrist Flexion: 70 Extension: 65 Ulnar Deviation: 15 Radial Deviation: 20 Comments: Flexion: Extension: Ulnar Deviation: Radial Deviation: Comments: 3+/5 Thumb Thumb CMC Flexion: Thumb MCP Flexion: Thumb IP Flexion: Radial Abduction: Palmar Abduction: Reading (Kapandji 0-10): Comments: WFL Digits Index MCP: PIP: DIP: Long MCP: PIP: DIP: Ring MCP: PIP: DIP: Small MCP: PIP: DIP: Comments: Gross Grasp: 52.5(R), Lateral Pinch: 13 Two-Point Pinch: 5 Three-Jaw Giovanni: 8 Comments: Patient Education Primary Language: Meat Grader Required: No Current Knowledge: Teaching Method: Education Needs Identified on Evaluation: How did patient/family demonstrate learning? Barriers to Learning: Readiness for Learning: Who was educated? Comments: Plan of Care Assessment: Patient is a 53 y/o female with PMHx of DM, who was referred to skilled OT with diagnosis of (L)Lateral epicondylitis. She reports 6/10 pain with numbness/tingling throughout the day but is worse at night. Based on initial OT evaluation patient's current wrist AROM are as follows: 65* extension, 70* flexion, 15* radial deviation, and 20* radial deviation. 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 (R) and 22.5lbs. (L). Provocative testing was (+)Tinel's sign, (+) Cozen's Test and (+)Mill's test. Patient's sensation and coordination is intact. Quick DASH= 52.3 Patient's CLOF is min (A)IADL as patient presents with impaired strength, impaired ROM, pain and impaired performance during self care tasks. Due to the documented impairments it is recommended that patient receive skilled OT in order for her to achieve her PLOF of (I). Thank you for your referral. STG Duration: 2 weeks Short Term Goals: Patient will report decreased pain in (L)elbow to a 4/10 pain during performance of self care tasks Patient will have increased (L)wrist extension to 70* for improved ADL performance Patient will increased (L)post graduate intern strength to 25lbs. for improved performance during self care tasks patient will be (I)with CFB wear schedule LTG Duration: 4 weeks Alf Goals: Patient will report 0/10 pain in (L)elbow during performance of self care tasks Patient's (L)wrist will have AROM WFLs for improved performance during self care tasks Patient will be (I) with HEP Patient's Quick DASH will decrease by at least 20% for overall improved (L)UE Frequency and Duration: The patient will be seen 2x a week for 4 weeks Treatment Plan: Therapeutic Exercise Therapeutic Activity Home Exercise Program Splinting Patient Education ADL Training Ultrasound NMES Iontophoresis Paraffin Fluidotherapy MHP Cold Packs Joint Mobilization Soft Tissue Mobilization Kinesiotaping Skilled OT eval and treat Electronically Signed By: ALCIRA Rogers/Alise, CLT Reviewed/agree with student documentation: Therapist: Please sign and return to therapist, Thank you for your referral.
--- NOTE | 2024-05-05 09:22 | MHC.OT.DC ---
[address] [phone] F: [phone] Occupational Therapy Discharge Note Patient Name: Jerri Engel Provider: Kosta Markham PA-C Diagnosis: (L) Lateral Epicondylitis Date of Evaluation: 03/28/24 Date of Discharge: 05/05/24 Treatments to Date: 11 Discharge Status: Achieved Goals Improved Function Independent with HEP Discharge Summary: Jerri was referred to OT w/ left lateral epicondylitis. She is doing well overall, pain free at most times, still w/ occasional pain, mostly with lifting around the house. Wearing CFB at work. Good follow through w/ HEP and joint protection/activity modification. Goals met. Electronically Signed By: Katya Calderon OTR/Alise Reviewed/agree with student documentation: Therapist: Please Sign and return to therapist, thank you for your referral.
== END 2024-05-05 09:22 | disposition home or self-care (01) ==
LOC: HO.OT 07:00
PROVIDERS: PCP Nurse Practitioner Family
DX: M77.12 Lateral epicondylitis, left elbow (principal)
CPT/HCPCS: 29125; 97033; 97035; 97110; 97140; 97165; 97760

== ENCOUNTER 2024-05-22 13:49 | Outpatient (AMB) | payer OTHER, SELFPAY ==
[2024-05-22 13:58] VITALS: BP 100/60; PULSE 88; O2SAT 98; BMI 40.7
--- NOTE | 2024-05-22 13:58 | MHC.PC.OV ---
Vital Signs 05/22/24 13:58 Height 5 ft 7 in Weight 260 lb BMI 40.7 BP 100/60 Blood Pressure Location Rt brachial Position Sitting Pulse 88 Pulse Source Pulse Oximeter Pulse Oximetry (%) 98 Oxygen Delivery Method Room Air Intake Visit Reasons: Annual PE Intake Note: Pt is here today for her PE Allergies No Known Allergies Allergy (Verified 05/22/24 17:00) Medication List - Last Reconciled 05/22/24 by JUSTIN Ramon albuterol sulfate 90 mcg/actuation 1 inh inhalation QID PRN aspirin 81 mg PO DAILY atorvastatin 10 mg PO BEDTIME betamethasone dipropionate 0.05% 1 appl topical BID PRN blood sugar diagnostic (FreeStyle Lite Strips) TID testing or as needed for hypo/hyperglycemia cetirizine (Zyrtec) 10 mg PO DAILY PRN colesevelam 625 mg PO BID fluorouracil 5% 1 appl topical BEDTIME 4 weeks gabapentin 100 mg PO TID lancets (BD Ultra Fine Lancets) TID testing or as needed for hypo/hyperglycemia lisinopril 10 mg PO DAILY meloxicam 15 mg PO DAILY PRN 30 days metformin 1,000 mg PO BID niacin ER 2,000 mg (2 x 1,000 mg) PO BEDTIME pioglitazone 30 mg PO DAILY semaglutide 2 mg (0.75 mL) subcut QWEEK venlafaxine ER 150 mg PO DAILY Tobacco use date assessed: 05/22/24 Dental Screening Dental Screen Date: 05/22/24 Did you have a dental visit in the last 12 months?: Yes Did you have a dental problem in the last 6 months where you did not have access to dental care?: No Was dental information given to patient?: Patient has dentist HPI Annual PE HPI Details Pt is here for a PE. Will order labs. Colon screen is up to date. Mammo is scheduled. Has a dental sales representative. Pt is a diabetic, on an DIDIER and a statin. A1C in office today is 5.8. Due for microalbumin, will order. Denies polyuria, polydipsia, and neuropathy. Pt denies any signs and symptoms of hypoglycemia and does know how to correct it. Informed pt that she can obtain her shingles vaccine at her pharmacy. 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 1. Little interest or pleasure in doing things: not at all 2. Feeling down, depressed, or hopeless: not at all 3. Trouble falling or staying asleep, or sleeping too much: not at all 4. Feeling tired or having little energy: not at all 5. Poor appetite or overeating: not at all 6. Feeling bad about yourself - or that you are a failure or have let yourself or your family down: not at all 7. Trouble concentrating on things, such as reading the newspaper or watching television: not at all 8. Moving or speaking so slowly that other people could have noticed. Or the opposite - being so fidgety or restless that you have been moving around a lot more than usual: not at all 9. Thoughts that you would be better off or of hurting yourself in some way: not at all Total score: 0 Depression Screening Interpretation: Negative Depression Screening Done: Yes 35949 - PHQ-9 Billing: Yes Source: Developed by Drs. Josesito Ulloa, Juana Calderon, Sushil Chavez and colleagues, with an educational sudheer from [employer]. Thrive Questionnaire Date Thrive assessed: 05/22/24 I am a: Patient What is your living situation today?: I have a steady place to live Within the past 12 months, did the food you bought not last and you didn't have the money to get more?: Never true Within the past 12 months, did you worry whether your food would run out before you got money to buy more?: Never true Do you have trouble paying for medicines?: No Do you have trouble getting transportation to medical appointments?: No Do you have trouble paying your heating and electricity bill?: No Do you have trouble taking care of your child, family member or friend?: No Do you have trouble with day-to-day activities such as bathing, preparing meals, shopping, managing finances, etc.?: No Are you interested in more education?: No Please select the resources that you would like help with: None Currently or been in a relationship where the following occur: No concerns reported THRIVE Score: 0 AUDIT C Alcohol Use Questionnaire (AUDIT-C) 1. How often do you have a drink containing alcohol?: Never Total Score: 0 LETITIA-7 AMB Questionnaire LETITIA-7 Date LETITIA - 7 assessed: 05/22/24 Feeling nervous, anxious, or on edge: 0 = Not at all Not being able to stop or control worryin = Not at all Worrying too much about different things: 0 = Not at all Trouble relaxin = Not at all Being so restless that it is hard to sit still: 0 = Not at all Becoming easily annoyed or irritable: 0 = Not at all Feeling afraid as if something awful might happen: 0 = Not at all Total LETITIA-7 score (0-4 normal; 5-9 mild; 10-14 moderate; 15-21 severe): 0 Source: Developed by Drs. Josesito Ulloa, Juana Calderon, Sushil Chavez and colleagues, with an educational sudheer from [employer]. LETITIA-7 Assessment Billing LETITIA-7 Assessment Tool: LETITIA-7 Assessment 61787 Review of Systems Const Denies chills and Denies fever(s) Eyes Denies blurry vision ENT Denies vertigo, Denies dizziness and Denies sore throat Card Denies chest pain at rest, Denies chest pain with activity, Denies diaphoresis, Denies dyspnea and Denies dyspnea on exertion Resp Denies cough, Denies dyspnea, Denies dyspnea on exertion and Denies wheezing GI Denies abdominal pain, Denies melena, Denies hematochezia, Denies constipation, Denies diarrhea and Denies loose stools Denies hematuria Musc Denies numbness and Denies tingling Skin/Breast Denies lesions Neuro Denies vertigo, Denies dizziness, Denies numbness and Denies tingling Psych Denies anxiety, Denies depression, Denies homicidal ideation, Denies suicidal ideation and Denies other (substance abuse) Aller/Immun Denies wheezing Physical exam (Primary Care) Vital Signs: Last Vital Signs Pulse 88 05/22/24 13:58 BP 100/60 05/22/24 13:58 Pulse Ox 98 05/22/24 13:58 Oxygen Delivery Method Room Air 05/22/24 13:58 BMI result Body Mass Index 40.7 Tobacco/Smoking Status: Tobacco use Status Tobacco use date assessed 05/22/24 05/22/24 14:02 Patient Tobacco Use Status Never used Tobacco 05/22/24 13:59 e-Cigarette/Vaping Use Never Used 05/22/24 13:59 PHQ-9: PHQ-9 Score PHQ-9: Total score 0 05/22/24 14:12 Depression Screening Interpretation: Negative Thrive Assessment: Date of Thrive Assessment Date Thrive assessed 05/22/24 05/22/24 14:02 Currently or been in a relationship where the following occur: No concerns reported Const General: cooperative Nutritional Appearance: obese morbidly obese Orientation/consciousness: patient oriented x3 HENMT Other: cerumen noted to left ear, after ear lavage some residual cerumen noted Head: Yes normal to inspection, Yes normocephalic and Yes atraumatic Ears: TM normal on the right Eyes General: appearance normal, both eyes and all related structures Alignment and Position: alignment normal and position normal Neck Neck: Yes normal visual inspection, Yes no lymphadenopathy and Yes supple Resp Effort & Inspection: normal respiratory effort Auscultation: clear to auscultation bilaterally Cardio Rate: regular rate Rhythm: regular rhythm Heart sounds: S1 normal heart sound present, S2 normal heart sound present and no murmurs GI Palpation (GI): Soft to palpation and nontender Auscultation: normal bowel sounds Skin Rashes: no rashes Neuro General: patient oriented x3, moves all extremities, no focal motor deficits and deep tendon reflexes 2+ bilaterally Romberg Test: Negative Psych Appearance: grossly normal Mental Status: mental status grossly normal Speech and movement: Normal speech and movement present Affect: normal affect Attitude: cooperative Thought process: Normal thought process present Thought content: Normal thought content present Insight: Good insight present (Psych) Judgement: Good judgement present (Psych) Office Procedures Cerumen Removal From which ear canal was the cerumen removed: left Removal: irrigation Notes: patient tolerated procedure well, no complications and ear canal clear [id number] Irrigation/Lavage Results AMB Hemoglobin A1c AMB Hemoglobin A1c 5.8 % Last Edit by Heena Toro CMA on 05/22/24 14:08 Results Reviewed Results Reviewed: Laboratory Last Values Hgb A1c (Clinic) 5.8 % (4.0-6.0) 05/22/24 14:07 Coding Level of Care Code Est Pt Prev Care 40-64y(12376) Diagnoses Diabetes E11.9 Encounter for routine adult physical exam with abnormal findings Z00. Vitamin D deficiency E55.9 Cerumen debris on tympanic membrane H61.20 CPT Codes Office Procedure - CPT: 81329-Wsv Irrigation/Lavage ([id number]) Additional Codes LETITIA-7 Assessment Billing - LETITIA-7 Assessment Tool: LETITIA-7 Assessment 98118 ([id number]) Assessment & Plan Assessment & Plan (1) Diabetes: Code(s): E11.9 - Type 2 diabetes mellitus without complications Category: Medical Plan: Labs ordered, fairly well controlled (2) Encounter for routine adult physical exam with abnormal findings: Code(s): Z00.01 - Encounter for general adult medical examination with abnormal findings Category: Medical Plan: Labs ordered (3) Vitamin D deficiency: Code(s): E55.9 - Vitamin D deficiency, unspecified Category: Medical Plan: Vitamin D ordered (4) Cerumen debris on tympanic membrane: Code(s): H61.20 - Impacted cerumen, unspecified ear Category: Medical Plan: ear wax removal kit recommended Plan The patient agreed to the use of a medical voucher clerk for this encounter. Scribed for JUSTIN Germain by stephanie Ribeiro scribe, on 05/22/2024 at 14:05 EST. Orders: Orders Complete Blood Count Auto Diff Today E11.9 - Type 2 diabetes mellitus without complications, Z00.01 - Encounter for general adult medical examination with abnormal findings Comprehensive [place]. Panel Fast Today E11.9 - Type 2 diabetes mellitus without complications, Z00.01 - Encounter for general adult medical examination with abnormal findings UA CC w/rflx Micro + Cult Today E11.9 - Type 2 diabetes mellitus without complications, Z00.01 - Encounter for general adult medical examination with abnormal findings Lipid Panel Today E11.9 - Type 2 diabetes mellitus without complications, Z00.01 - Encounter for general adult medical examination with abnormal findings Vitamin D 25-OH Total Today E55.9 - Vitamin D deficiency, unspecified TSH reflex Free T4 Today E11.9 - Type 2 diabetes mellitus without complications, Z00.01 - Encounter for general adult medical examination with abnormal findings Microalbumin, Random (w Creat) Today E11.9 - Type 2 diabetes mellitus without complications, Z00.01 - Encounter for general adult medical examination with abnormal findings AMB Hemoglobin A1c Today E11.9 - Type 2 diabetes mellitus without complications Medications: Refilled gabapentin 100 mg PO TID 90 caps 2RF
== END 2024-05-22 15:20 | disposition home or self-care (01) ==
PROVIDERS: PCP Nurse Practitioner Family; Visit Provider Nurse Practitioner Family
DX: Z00.00 Encounter for general adult medical examination without abnormal findings (principal); E11.9 Type 2 diabetes mellitus without complications; E55.9 Vitamin D deficiency, unspecified; H61.22 Impacted cerumen, left ear

== ENCOUNTER → 2024-05-22 13:49 | Outpatient (BNVA) | payer OTHER, SELFPAY | PROVIDERS: PCP Nurse Practitioner Family; Visit Provider Nurse Practitioner Family | DX: Z00.01 Encounter for general adult medical examination with abnormal findings (principal); H61.22 Impacted cerumen, left ear; E11.9 Type 2 diabetes mellitus without complications; E55.9 Vitamin D deficiency, unspecified | CPT/HCPCS: 69209; 83036; 96127 ==

== ENCOUNTER 2024-05-27 08:01 | Outpatient (REF) | payer OTHER, SELFPAY ==
--- NOTE | ~2024-05-27 | MM_ITS ---
EXAMINATION: MM SCREENING DIGITAL BREAST TOMOSYNTHESIS, BILATERAL CLINICAL INFORMATION: Screening. Asymptomatic. COMPARISON: Mammography: Comparison is made with available priors TECHNIQUE: Digital breast mammography with tomosynthesis is performed in both the craniocaudal and mediolateral oblique views along with computer-aided detection (CAD). FINDINGS: There are scattered areas of fibroglandular density (ACR BI-RADS breast composition Category b). There are no significant masses, abnormal calcifications, or other abnormalities. MM/MM tomosynthesis screening BI IMPRESSION: No mammographic evidence of malignancy. ASSESSMENT: BI-RADS BI-RADS 1 - Negative RECOMMENDATION: Routine annual mammography screening. 1 year F/U This examination should not preclude the clinical evaluation of a suspicious palpable abnormality. This patient's information was entered into a reminder system with a target due date for their next mammogram. Electronically signed by: Delmi Lemons DO 06/09/2024 10:08 AM FEROZ
== END 2024-05-27 08:02 | disposition home or self-care (01) ==
LOC: HO.MAMMO 08:01
PROVIDERS: PCP Nurse Practitioner Family; Visit Provider Nurse Practitioner Family
DX: Z12.31 Encounter for screening mammogram for malignant neoplasm of breast (principal)
CPT/HCPCS: 77063; 77067

== ENCOUNTER → 2024-05-27 08:15 | Outpatient (BNV) | payer OTHER, SELFPAY | PROVIDERS: PCP Nurse Practitioner Family; Visit Provider Internal Medicine | DX: Z12.31 Encounter for screening mammogram for malignant neoplasm of breast (principal) | CPT/HCPCS: 77063; 77067 ==

== ENCOUNTER 2024-07-31 11:00 | Outpatient (AMB) | payer OTHER, SELFPAY ==
--- NOTE | 2024-07-31 11:04 | MHC.OFFVIS ---
Vital Signs 07/31/24 11:06 Height 5 ft 7 in Weight 260 lb BMI 40.7 Handedness Right Intake Visit Reasons: Preop LT CTR/cubital 08/17/24 AR Intake Note: Jerri is a 53 year old right hand dominant female who presents today for a pre operative visit for a left carpal and cubital tunnel release w/ Dr Horne DOS: 08/17/24. Patient is unsure if the cubital tunnel release is necessary, she would like to discuss this. She will proceed with carpal tunnel release. Allergies No Known Allergies Allergy (Verified 07/31/24 11:05) HPI HPI Preop LT CTR/cubital 08/17/24 AR: Details: Patient is a 53-year-old female who presents for preoperative evaluation prior to left cubital and carpal tunnel releases, DOS 08/17/2024. Today, the patient reports that she does not feel she needs a cubital tunnel release at this time, as she is experiencing no numbness or tingling in the small finger her left hand. Patient reports that her carpal tunnel symptoms have remained consistent since previous evaluation. Patient would like to proceed with surgery for her carpal tunnel syndrome. No other acute complaints or concerns at this time. 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 Cognitive needs: No Hearing needs: No Vision needs: Yes Review of Systems Const All systems reviewed & are unremarkable except as noted in HPI and below Physical Exam Vital Signs: BMI result Body Mass Index 40.7 Const Other: Patient is alert, oriented, cooperative, and in no acute distress HEENT Head: Yes normocephalic and Yes atraumatic Resp Effort & Inspection: normal respiratory effort and able to speak in complete sentences Cardio Jugular venous distension: no JVD Neuro General: gait normal Cognition (Neuro): normal cognition Extrem Other: Patient is alert, oriented, and in no acute distress. Neuro: Median, ulnar, radial nerves motor and sensory intact and sensation is normal to the tips of all digits. Vascular: Cap refill brisk Pain: Patient reports no pain in the left hand at this time ROM: Range of motion about the left hand, wrist, elbow full and intact Patient is able to make a closed fist Good finger cross Skin: No lacerations or abrasions. General: No ecchymosis, erythema, or evidence of infection. Negative Tinel's test at the wrist and elbow on the left Psych: Appears grossly normal Affect normal Attitude cooperative Psych Appearance: grossly normal Mental Status: mental status grossly normal Results Reviewed Results Reviewed: IMPRESSION: 1. Mild left median neuropathy across carpal tunnel. 2. Mild left ulnar neuropathy across cubital tunnel. Assessment & Plan Assessment & Plan (1) Carpal tunnel syndrome: Code(s): G56.00 - Carpal tunnel syndrome, unspecified upper limb Category: Medical (2) Cubital tunnel syndrome: Code(s): G56.20 - Lesion of ulnar nerve, unspecified upper limb Category: Medical Plan 1. Left carpal tunnel syndrome Symptoms intermittent, daily, worse at night I educated the patient about the condition. I discussed both operative and nonoperative treatment options. The patient would like to proceed with surgery. The risks and benefits of operative treatment were discussed with the patient and the patient wishes to proceed with surgery. These risks include, but are not limited to, risk of damage to blood vessels, nerves, tendons, infection, recurrence, incomplete relief of preoperative symptoms, persistent pain, possible need for further surgery, and the risks associated with regional blocks and/or anesthesia. Plan is to take the patient to the operating room at some point in the next few weeks for the following procedures: 1. Left carpal tunnel release under local anesthesia All of the preoperative paperwork including the consent was discussed today. All of the patient's questions were answered in the clinic today. The patient understands that they will be in contact with our planner scheduler to discuss scheduling their procedure. Patient reports diabetes, last A1c 6.2 Denies blood thinners, asthma, heart issues, lung issues, kidney issues, or current smoking. 2. Cubital tunnel syndrome, left Patient asymptomatic Cubital tunnel release scheduled for 08/17/2024 canceled, as the patient was not experiencing any signs or symptoms of cubital tunnel syndrome Patient was amenable to this plan Coding Level of Care Code Est Pt Level 4 (53394) Diagnoses Carpal tunnel syndrome G56.00 Cubital tunnel syndrome G56.20
[2024-07-31 11:06] VITALS: BMI 40.7
== END 2024-07-31 11:30 | disposition home or self-care (01) ==
PROVIDERS: PCP Nurse Practitioner Family
DX: G56.00 Carpal tunnel syndrome, unspecified upper limb (principal); G56.20 Lesion of ulnar nerve, unspecified upper limb
CPT/HCPCS: 99214

== ENCOUNTER → 2024-07-31 11:00 | Outpatient (BNVA) | payer OTHER, SELFPAY | PROVIDERS: PCP Nurse Practitioner Family ==

== ENCOUNTER 2024-08-14 10:26 | Day surgery (SDC) | payer OTHER, SELFPAY ==
[2024-08-14 11:03] VITALS: BP 129/69; PULSE 95; RESP 16; TEMP 36.5; O2SAT 96; BMI 40.7
--- NOTE | 2024-08-14 11:24 | MHC.SHP ---
Pre-Procedural Eval Section A - 24 Hr Update-Section A only Date of Service: 08/14/24 The patient is an INPATIENT: No Section B - Complete if H&P > 30 days Chief Complaint: carpal tunnel,lesion of ulnar verve Allergies: Allergies Allergy/AdvReac Type Severity Reaction Status Date / Time No Known Allergies Allergy Verified 07/31/24 11:05 Plan Diagnosis/Plan: Unchanged I have reviewed the history and physical and performed a pertinent physical examination on my patient. No changes have occurred unless specified. Time Spent With Patient Time: Total time managing care of this patient today ____ minutes.
--- NOTE | 2024-08-14 11:25 | P.OP_ITS ---
Operative Note Operative Note Date of Service: 08/14/24 Narrative: Preop diagnosis: 1. Left Carpal tunnel syndrome Postop diagnosis: same Procedure: 1. Left Carpal tunnel release Surgeon: Shira Horne MD Senior Network Engineer: None Anesthesia: local block using 1% lidocaine with epinephrine Findings: Thickened transverse carpal ligament. EBL: Less than 5 mL Specimens: None Complications: None Disposition: Brought to recovery room in stable condition Plan: Follow-up for 10-14 days for wound check and suture removal Indications: The patient is 53 years old, with left carpal tunnel syndrome that has been unresponsive to nonoperative management. The risks and benefits of operative treatment including but not limited to risk of damage to blood vessels, nerves, tendons, infection, persistent pain, persistent symptoms, or possible need for additional surgery were discussed with the patient and the patient wishes to proceed with surgery. Procedure: Once consent was obtained a local block was performed using a combination of 1% lidocaine with epinephrine. The patient was then brought back to the operating suite and placed on the operative table in supine position. The left upper extremity was prepped and draped in a standard surgical fashion. Once assured that we had a good block, a 2.0 cm longitudinal incision was made centered over the carpal tunnel. The incision was made through the skin to the subcutaneous tissues using a #15 blade. Dissection was made down to the level of the transverse carpal ligament with care being taken to protect the palmar cutaneous nerve. Once the transverse carpal ligament was clearly visualized, a longitudinal incision was made in the transverse carpal ligament 1st using a #15 blade, then using tenotomy scissors under direct visualization. Care was taken to look for and protect the motor branch of the median nerve when seen in this area. Once satisfied with our carpal tunnel release the wound was copiously irrigated with normal saline and hemostasis was obtained with a brief period of local pressure. The skin edges were reapproximated with some 5.0 nylon suture material and a sterile dressing was applied. The patient appears to have tolerated the procedure well and with no complicatio ns. All digits were well vascularized at the conclusion of the case.
[2024-08-14 12:39] VITALS: BP 111/60; PULSE 77; RESP 16; O2SAT 98
== END 2024-08-14 12:45 | disposition home or self-care (01) ==
PROVIDERS: PCP Nurse Practitioner Family; Visit Provider Orthopaedic Surgery
PROC: (CPT 64721; principal; 2024-08-14 11:30)
DX: G56.02 Carpal tunnel syndrome, left upper limb (principal); G47.33 Obstructive sleep apnea (adult) (pediatric); E11.9 Type 2 diabetes mellitus without complications; Z87.01 Personal history of pneumonia (recurrent); Z98.890 Other specified postprocedural states
CPT/HCPCS: 64721; J0171; J2003

== ENCOUNTER → 2024-08-14 10:26 | Outpatient (BNV) | payer OTHER, SELFPAY | PROVIDERS: PCP Nurse Practitioner Family; Visit Provider Orthopaedic Surgery | DX: G56.02 Carpal tunnel syndrome, left upper limb (principal) | CPT/HCPCS: 64721 ==

== ENCOUNTER 2024-08-30 10:53 | Outpatient (AMB) | payer OTHER, SELFPAY ==
--- NOTE | 2024-08-30 11:06 | A.OFFVIS_ITS ---
Vital Signs 08/30/24 11:12 Height 5 ft 7 in Weight 260 lb BMI 40.7 Intake Visit Reasons: PO LT CTR 08/14/24 AR Intake Note: Jerri is a 53 year old female who presents to the office today for a PO LT CTR 08/14/24. Pt states she is doing well. She states she still has some soreness. Pt denies any numbness or tingling. Allergies No Known Allergies Allergy (Verified 08/30/24 11:07) HPI HPI PO LT CTR 08/14/24 AR: Details: Jerri is a 53 year old female who presents to the office today for a PO LT CTR 08/14/24. Pt states she is doing well. She states she still has some soreness. Pt denies any numbness or tingling. 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 Neuro: Normal sensation of the tips of all digits of the left hand at this time Vascular: Cap refill brisk Pain: No tenderness palpation about incision site on the volar left wrist ROM: Patient is able to Flex and extend all digits of the left hand fully and without difficulty Skin: No lacerations or abrasions. General: No ecchymosis, erythema, or evidence of infection. Psych: Appears grossly normal Affect normal Attitude cooperative Assessment & Plan Assessment & Plan (1) Carpal tunnel syndrome: Code(s): G56.00 - Carpal tunnel syndrome, unspecified upper limb Category: Medical Plan 1. Left carpal tunnel syndrome status post carpal tunnel release DOS 08/14/2024 Patient appears to be recovering well postoperatively Patient is educated about the typical recovery course At this time, patient is informed that she is recovering very well, and will require no further acute intervention from us at this time, as she is recovering very well Patient was amenable to this plan Patient will follow-up as needed with any acute concerns Coding Level of Care Code Global (96145) Diagnoses Carpal tunnel syndrome G56.00
[2024-08-30 11:12] VITALS: BMI 40.7
== END 2024-08-30 11:24 | disposition home or self-care (01) ==
PROVIDERS: PCP Nurse Practitioner Family
DX: G56.00 Carpal tunnel syndrome, unspecified upper limb (principal)
CPT/HCPCS: 99024

== ENCOUNTER → 2024-08-30 10:53 | Outpatient (BNVA) | payer OTHER, SELFPAY | PROVIDERS: PCP Nurse Practitioner Family ==

== ENCOUNTER 2024-11-20 06:13 | Outpatient (REF) | payer OTHER, SELFPAY ==
[2024-11-20 10:36] LABS: MANUAL DIFF FLAG NO
[2024-11-20 10:48] LABS: Basophils Percent Auto 0.4 % (0-2); Eosinophils Absolute Auto 0.1 X10*3/uL (0.0-0.4); Eosinophils Percent Auto 1.7 % (0-4); Hematocrit 35.3 % (37.0-47.0); Hemoglobin 11.5 g/dl (12.0-16.0); Imm Gran Abs Auto 0.02 X10*3/uL (0.00-0.03); Imm Gran Pct Auto 0.3 % (0.0-0.4); Lymphocytes Percent Auto 28.3 % (20-40); Mean Corpuscular HGB Conc 32.6 g/dl (31.0-35.0); Mean Corpuscular Hemoglobin 30.5 pg (27.0-33.0); Mean Corpuscular Volume 93.6 fL (80.0-98.0); Mean Platelet Volume 9.8 fL (9.4-12.3); Monocytes Absolute Auto 0.4 X10*3/uL (0.1-1.2); Monocytes Percent Auto 4.9 % (2-11); Neutrophils Absolute Auto 4.6 x10*3/uL (2.0-8.3); Neutrophils Percent Auto 64.4 % (45-73); Platelet Count 252 X10*3/uL (160-400); Red Blood Count 3.77 X10*6/uL (4.20-5.50); Red Cell Distribution Width 12.5 % (11.0-16.0); White Blood Count 7.1 X10*3/uL (4.8-10.8)
[2024-11-20 11:27] LABS: Alanine Aminotransferase 20 U/L (0-31); Albumin Level 4.2 g/dL (3.5-5.0); Alkaline Phosphatase 89 U/L (39-117); Anion Gap 12 (12-20); Aspartate Amino Transferase 31 U/L (5-31); Bilirubin Total 0.6 mg/dL (0.0-1.0); Blood Urea Nitrogen 14 mg/dL (9-16); Calcium 10.3 mg/dL (8.4-10.2); Carbon Dioxide 25 mmol/L (22-29); Chloride 106 mmol/L (96-108); Cholesterol 160 mg/dL (<200); Estimated Glomerular Filt Rate > 60; Glucose Fasting 120 mg/dL (60-99); HDL Cholesterol 68 mg/dL (>40); LDL Cholesterol Calculated 76 mg/dL (<100); Potassium 4.6 mmol/L (3.3-5.1); Sodium 138 mmol/L (135-145); Total Protein 7.8 g/dL (6.5-8.0); Triglycerides 81 mg/dL (<150)
[2024-11-20 11:44] LABS: TSH reflex Free T4 1.46 uIU/mL (0.32-4.0)
== END 2024-11-20 06:14 | disposition home or self-care (01) ==
LOC: HO.HMGCLDS 06:13
PROVIDERS: PCP Nurse Practitioner Family; Visit Provider Nurse Practitioner Family
DX: Z00.01 Encounter for general adult medical examination with abnormal findings (principal); E11.9 Type 2 diabetes mellitus without complications; E55.9 Vitamin D deficiency, unspecified
CPT/HCPCS: 36415; 80053; 80061; 82306; 84443; 85025

== ENCOUNTER 2024-12-27 15:18 | Outpatient (AMB) | payer OTHER, SELFPAY ==
--- NOTE | 2024-12-27 15:34 | A.OFFPC_ITS ---
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 Required: No Accompanied by: Self / Same As Patient Allergies No Known Allergies Allergy (Verified 12/27/24 16:31) Medication List - Last Reconciled 12/27/24 by WALTER Ramon- albuterol sulfate 90 mcg/actuation 1 inh inhalation QID PRN aspirin 81 mg PO DAILY atorvastatin 10 mg PO BEDTIME betamethasone dipropionate 0.05% 1 appl topical BID PRN blood sugar diagnostic (FreeStyle Lite Strips) TID testing or as needed for hypo/hyperglycemia cetirizine (Zyrtec) 10 mg PO DAILY PRN colesevelam 625 mg PO BID fluorouracil 5% 1 appl topical BEDTIME 4 weeks gabapentin 100 mg PO TID lancets (BD Ultra Fine Lancets) TID testing or as needed for hypo/hyperglycemia lisinopril 10 mg PO DAILY meloxicam 15 mg PO DAILY PRN 30 days metformin 1,000 mg PO BID niacin ER 2,000 mg (2 x 1,000 mg) PO BEDTIME pioglitazone 30 mg PO DAILY semaglutide 2 mg (0.75 mL) subcut QWEEK venlafaxine ER 150 mg PO DAILY Tobacco use date assessed: 12/27/24 Dental Screening Dental Screen Date: 12/27/24 Did you have a dental visit in the last 12 months?: Yes Did you have a dental problem in the last 6 months where you did not have access to dental care?: No Was dental information given to patient?: Patient has dentist HPI follow up with labs (r/s 11/21) HPI Details Chief Complaint Follow-up appointment for diabetes management History of Present Illness The patient is a 54-year-old female presenting for a follow-up to manage her Type 2 Diabetes Mellitus. She is currently on a GLP-1 agonist and reports doing quite well with this treatment. She denies any symptoms of neuropathy, polyuria, or polydipsia. Encouragingly, she is experiencing weight loss, indicative of an improvement with her diabetes management. Her hemoglobin A1c level recorded during this visit is 5.9, which shows efficient glycemic control. Her past medical history includes obesity. Preventive measures have been maintained, with up-to-date mammogram and colonoscopy screenings, and adherence to yearly eye examinations. Social History - Weight management: The patient is curr ently experiencing weight loss. Health Maintenance - Mammogram: Up to date - Colonoscopy: Up to date - Annual eye exams: Up to date - Microalbumin screen planned Review of Systems - Endocrine: Denies polyuria, polydipsia - Neurological: Denies neuropathy Physical Exam General: Cooperative, healthy appearing, comfortable, no acute distress and well developed, morbid obesity Orientation: Patient oriented x3 Limitations: No limitations Head: Normal to inspection Ears: Hearing grossly normal bilaterally Nose: Normal external nose present Face and sinus: Normal facial exam Eyes: Appearance normal, both eyes and all related structures Neck: Normal visual inspection and Yes full ROM Respiratory: Normal respiratory effort and able to speak in complete sentences. Clear to auscultation bilaterally Cardiovascular: Faint systolic murmur noted, regular rate and rhythm. Normal S1 and S2 GI: Normal to inspection. Soft to palpation and nontender Skin: No rashes or lesions noted Neuro: Patient oriented x3 Extremities: Obesity noted, otherwise normal to inspection Results - Labs: Hemoglobin A1c level of 5.9 Plan 1. 9. Weight management efforts are posi tively impacting her overall diabetes management. No current symptoms indicative of diabetic complications, such as neuropathy or polyuria, were reported. She is compliant with regular screenings, including mammograms, colonoscopies, and eye exams. A microalbumin test is planned for the next round of laboratory work. The systolic murmur noted does not require immediate intervention. Lifestyle modifications aimed at continued weight loss and healthy living will be emphasized.: Discussion Notes We discussed the current control of her Type 2 Diabetes Mellitus and positive outcomes from the GLP-1 agonist therapy. I emphasized the importance of maintaining weight loss for overall health benefits, particularly in enhancing diabetic control and reducing cardiovascular risk. We reviewed her recent hemoglobin A1c result of 5.9, indicating excellent glycemic control. Additionally, I reiterated the importance of continuing with regular mammograms, colonoscopies, and annual eye exams, all of which are up to date. The discussed laboratory plan includes a microalbumin test to monitor kidney function. The presence of a systolic murmur was noted but did not raise immediate concern for further cardiology evaluation. The patient understood the importance of adhering to lifestyle changes for optimal health outcomes. Patient Instructions - Continue taking your diabetes medicati on as prescribed. - Maintain healthy eating and exercise h abits to support weight loss. - labs in the coming month, including a microalbumin test. - Ensure you attend all regular screenin gs like mammograms and eye exams. - Report any new symptoms like shortness of breath or palpitations. PFSH Medical History History of COVID-19 Sleep apnea Pneumonia Diabetes Surgical History H/O tubal ligation History of carpal tunnel surgery Family History Father HTN (hypertension) Myocardial infarction CVD (cardiovascular disease) Mother Asthma Maternal Grandmother Lung cancer Maternal Aunt Lung cancer Smoker Social History Housing: Apartment Alcohol intake: never Patient Tobacco Use Status: Never used Tobacco e-Cigarette/Vaping Use: Never Used Second Hand Smoke Exposure: No Current occupational status: employed Current occupation: [employer] Cognitive needs: No Hearing needs: No Vision needs: Yes Questionnaire PHQ-9 Over the last 2 weeks, how often have you been bothered by any of the following problems? 1. Little interest or pleasure in doing things: not at all 2. Feeling down, depressed, or hopeless: not at all 3. Trouble falling or staying asleep, or sleeping too much: not at all 4. Feeling tired or having little energy: not at all 5. Poor appetite or overeating: not at all 6. Feeling bad about yourself - or that you are a failure or have let yourself or your family down: not at all 7. Trouble concentrating on things, such as reading the newspaper or watching television: not at all 8. Moving or speaking so slowly that other people could have noticed. Or the opposite - being so fidgety or restless that you have been moving around a lot more than usual: not at all 9. Thoughts that you would be better off or of hurting yourself in some way: not at all Total score: 0 Depression Screening Interpretation: Negative Depression Screening Done: Yes [id number] - PHQ-9 Billing: Yes Source: Developed by Drs. Josesito Ulloa, Juana Calderon, Sushil Chavez and colleagues, with an educational sudheer from [employer]. Thrive Questionnaire Date Thrive assessed: 12/27/24 I am a: Patient What is your living situation today?: I have a steady place to live Within the past 12 months, did the food you bought not last and you didn't have the money to get more?: Never true Within the past 12 months, did you worry whether your food would run out before you got money to buy more?: Never true Do you have trouble paying for medicines?: No Do you have trouble getting transportation to medical appointments?: No Do you have trouble paying your heating and electricity bill?: No Do you have trouble taking care of your child, family member or friend?: No Do you have trouble with day-to-day activities such as bathing, preparing meals, shopping, managing finances, etc.?: No Are you currently unemployed and looking for a job?: No Are you interested in more education?: No Please select the resources that you would like help with: None Currently or been in a relationship where the following occur: No concerns reported THRIVE Score: 0 AUDIT C Alcohol Use Questionnaire (AUDIT-C) 1. How often do you have a drink containing alcohol?: Never 3. How often do you have six or more drinks on one occasion?: Never Total Score: 0 Score Reviewed/Action Taken: Yes LETITIA-7 AMB Questionnaire LETITIA-7 Date LETITIA - 7 assessed: 12/27/24 Feeling nervous, anxious, or on edge: 0 = Not at all Not being able to stop or control worryin = Not at all Worrying too much about different things: 0 = Not at all Trouble relaxin = Not at all Being so restless that it is hard to sit still: 0 = Not at all Becoming easily annoyed or irritable: 0 = Not at all Feeling afraid as if something awful might happen: 0 = Not at all Total LETITIA-7 score (0-4 normal; 5-9 mild; 10-14 moderate; 15-21 severe): 0 Source: Developed by Drs. Josesito Ulloa, Juana Calderon, Sushil Chavez and colleagues, with an educational sudheer from [employer]. LETITIA-7 Assessment Billing LETITIA-7 Assessment Tool: LETITIA-7 Assessment 65775 Physical exam (Primary Care) Vital Signs: Last Vital Signs Pulse 84 12/27/24 15:35 BP 122/74 12/27/24 15:35 Pulse Ox 99 12/27/24 15:35 Oxygen Delivery Method Room Air 12/27/24 15:35 BMI result Body Mass Index 40.4 Tobacco/Smoking Status: Tobacco use Status Tobacco use date assessed 12/27/24 12/27/24 15:36 Patient Tobacco Use Status Never used Tobacco 12/27/24 15:36 e-Cigarette/Vaping Use Never Used 12/27/24 15:36 PHQ-9: PHQ-9 Score PHQ-9: Total score 0 12/27/24 15:42 Depression Screening Interpretation: Negative Thrive Assessment: Date of Thrive Assessment Date Thrive assessed 12/27/24 12/27/24 15:36 Currently or been in a relationship where the following occur: No concerns reported Coding Level of Care Code Est Pt Level 3 (01331) Diagnoses Diabetes E11.9 Vitamin D deficiency E55.9 Hypomagnesemia E83.42 Screening for colon cancer Z12.11 Additional Codes LETITIA-7 Assessment Billing - LETITIA-7 Assessment Tool: LETITIA-7 Assessment 86339 ([id number]) PHQ-9 - 98042 - PHQ-9 Billing: Yes ([id number]) Assessment & Plan Assessment & Plan (1) Diabetes: Code(s): E11.9 - Type 2 diabetes mellitus without complications Category: Medical (2) Vitamin D deficiency: Code(s): E55.9 - Vitamin D deficiency, unspecified Category: Medical (3) Hypomagnesemia: Code(s): E83.42 - Hypomagnesemia Category: Medical (4) Screening for colon cancer: Code(s): Z12.11 - Encounter for screening for malignant neoplasm of colon Category: Medical Plan . Orders: Orders Microalbumin, Random (w Creat) Today E11.9 - Type 2 diabetes mellitus without complications Comprehensive [place]. Panel Fast Today E11.9 - Type 2 diabetes mellitus without complications Lipid Panel Today E11.9 - Type 2 diabetes mellitus without complications Magnesium Today E83.42 - Hypomagnesemia Vitamin D 25-OH Total Today E55.9 - Vitamin D deficiency, unspecified Complete Blood Count Auto Diff Today E11.9 - Type 2 diabetes mellitus without complications TSH reflex Free T4 Today E11.9 - Type 2 diabetes mellitus without complications UA CC w/rflx Micro + Cult Today E11.9 - Type 2 diabetes mellitus without complications Referrals Gastroenterology Referral Z12.11 - Encounter for screening for malignant neoplasm of colon
[2024-12-27 15:35] VITALS: BP 122/74; PULSE 84; O2SAT 99; BMI 40.4
== END 2024-12-27 16:56 | disposition home or self-care (01) ==
LOC: HO.HMCC 15:19
PROVIDERS: PCP Nurse Practitioner Family; Visit Provider Nurse Practitioner Family
DX: Z13.9 Encounter for screening, unspecified (principal)

== ENCOUNTER → 2024-12-27 15:18 | Outpatient (BNVA) | payer OTHER, SELFPAY | PROVIDERS: PCP Nurse Practitioner Family; Visit Provider Nurse Practitioner Family | DX: E11.9 Type 2 diabetes mellitus without complications (principal); E66.9 Obesity, unspecified; E55.9 Vitamin D deficiency, unspecified; E83.42 Hypomagnesemia | CPT/HCPCS: 83036; 96127 ==

== ENCOUNTER 2025-05-03 15:34 | Outpatient (AMB) | payer OTHER, SELFPAY ==
[2025-05-03 15:38] VITALS: BP 120/55; PULSE 78; BMI 39.4
--- NOTE | 2025-05-03 15:38 | A.OFFVIS_ITS ---
Vital Signs 05/03/25 15:38 Height 5 ft 7 in Weight 251 lb 5.231 oz BMI 39.4 BP 120/55 L Blood Pressure Location Lt brachial Position Sitting Pulse 78 Intake Visit Reasons: colo screening l/s 12/28 Intake Note: Jerri presents to in office visit today for colonoscopy screening. CC: Pt denies havingt any GI symptoms or concerns . Oracle Adf Consultant Required: No Accompanied by: Self / Same As Patient Allergies No Known Allergies Allergy (Verified 05/03/25 15:45) HPI HPI colo screening l/s 12/28: Details: Assessment & Plan (1) Colon cancer screening: ?Code(s): Z12.11 - Encounter for screening for malignant neoplasm of colon ?Plan: This is her first colonoscopy. There are no prior problems with anesthesia or sedation. She is still being worked up for EPIFANIO and she has a cardiac murmur but no dx and no over cardiac problems. NO ID problems. No known FHX of CRC or polyps. ? ? ? Medications: New peg 3350-electrolytes 236-22.74-6.74 -5.86 gram (Golytely) ?? until fecal effluent is clear; do not exceed a total volume of 2,000 mL 240 mL? PO Q10M 1 day 4,000 mL 0RF Z12.11 - Encounter for screening for malignant neoplasm of colon COLONOSCOPY Findings: Terminal Ileum: Not evaluated Cecum:? Normal Ascending Colon:? A 12-15 mm flat polyp at the hepatic flexure raised with 5 cc of normal saline (submucosal injection) and removed with a hot snare Transverse Colon:? Normal Descending Colon:? Normal Sigmoid Colon:? Moderate diverticulosis Rectum:? Normal Ano-rectum:? Moderate internal hemorrhoids Colon preparation: Excellent ? Impression and Post Procedure Diagnosis: Colonoscopy Findings: One medium sized polyp removed Moderate diverticulosis seen in the sigmoid colon Moderate hemorrhoids on retroflexed exam. Plan: Await pathology results Patient has an appointment on 06/20/22 in the GI Clinic with? Erna Morgan NP. Repeat Colonoscopy interval based on path results - in 3 years if polyps are adenomatous and 10 years if polyps are hyperplastic. BIOPSY Received: 05/25/22 Diagnosis Colon, hepatic flexure, polypectomy:? Tubular adenoma; negative for high-grade dysplasia or carcinoma. LABS: Laboratory Tests 11/20/24 06:22 WBC 7.1 RBC 3.77 L Hgb 11.5 L Hct 35.3 L MCV 93.6 MCH 30.5 Plt Count 252 Estimated GFR > 60 Total Bilirubin 0.6 AST 31 ALT 20 Alkaline Phosphatase 89 TSH 1.46 RELEVANT PMX EPIFANIO ? SHE NEVER WENT FOR TESTING DIABETES TODAY'S VISIT [facility] Medical History (Updated 05/03/25 @ 16:26 by MELITA Smith) Colon cancer screening Screening for colon cancer Sinus infection URI (upper respiratory infection) COVID-19 Physical exam Encounter for routine adult physical exam with abnormal findings History of COVID-19 Sleep apnea Pneumonia Diabetes Surgical History H/O tubal ligation History of carpal tunnel surgery Family History Father HTN (hypertension) Myocardial infarction CVD (cardiovascular disease) Mother Asthma Maternal Grandmother Lung cancer Maternal Aunt Lung cancer Smoker Social History Housing: Apartment Alcohol intake: never Patient Tobacco Use Status: Never used Tobacco e-Cigarette/Vaping Use: Never Used Second Hand Smoke Exposure: No Current occupational status: employed Current occupation: [employer] Cognitive needs: No Hearing needs: No Vision needs: Yes Review of Systems Const Denies fatigue, Denies fever(s), Denies night sweats, Denies poor appetite and Denies weight loss Eyes Details: glasses Reports requires corrective lenses ENT Reports Normal hearing present, Denies dental pain, Denies dysphagia, Denies hearing loss, Denies mouth pain, Denies odynophagia, Denies throat swelling, Denies tongue swelling and Reports other (Dentition adequate) Card Reports no additional complaints Resp Reports no additional complaints GI Details: Denies abdominal pain, Denies melena, Denies bloating, Denies hematochezia, Denies constipation, Denies GI cramping, Denies dysphagia, Denies excessive flatus, Denies early satiety, Denies heartburn, Denies diarrhea, Denies nausea, Denies odynophagia, Denies vomiting and Denies hematemesis Skin/Breast Denies pruritus, Denies lesions, Denies rash and Denies jaundice Neuro Reports Normal hearing present and Denies Abnormal speech present Endo Denies fatigue Aller/Immun Denies throat swelling and Denies tongue swelling Physical Exam Vital Signs: Last Vital Signs Pulse 78 05/03/25 15:38 BP 120/55 L 05/03/25 15:38 BMI result Body Mass Index 39.4 Const General: cooperative, no acute distress, well developed and well groomed Nutritional Appearance: well nourished and obese morbidly obese Orientation/consciousness: oriented to person, oriented to place and oriented to time Limitations: No language barrier HEENT Head: Yes normocephalic and Yes atraumatic Eyes General: appearance normal, both eyes and all related structures Pupils: Equal, round and reactive pupils present Neck Neck: Yes normal visual inspection and Yes no lymphadenopathy Thyroid: Thyroid normal Resp Effort & Inspection: normal respiratory effort and able to speak in complete sentences Auscultation: clear to auscultation bilaterally Cardio Rate: regular rate Rhythm: regular rhythm Heart sounds: Normal, physiologic split S2 sound present Peripheral pulses: radial pulses present and posterior tibial pulses present GI Inspection: No distended, Yes Abdominal panniculus present and Yes obesity Palpation (GI): Soft to palpation, nontender, no guarding, not rigid and No hepatosplenomegaly present Percussion: Yes normal to percussion Auscultation: normal bowel sounds Rectal Exam - Female: deferred Skin General skin exam: no rashes or lesions noted, turgor normal, skin not dry, no jaundice, No spider nevi and no striae Rashes: no rashes Nails: normal Neuro General: oriented to person, oriented to place and oriented to time Cranial nerves: Yes Equal, round and reactive pupils present and Yes Normal hearing present Speech: No Abnormal speech present Extrem General: Yes normal to inspection, No clubbing, No cyanosis and No edema Psych Appearance: grossly normal and well kempt Mental Status: mental status grossly normal Speech and movement: Normal speech and movement present Affect: normal affect Attitude: cooperative Thought process: Normal thought process present and not confabulating Thought content: Normal thought content present Insight: Good insight present (Psych) Judgement: Good judgement present (Psych) Assessment & Plan Assessment & Plan (1) Pre-op examination: Code(s): Z01.818 - Encounter for other preprocedural examination Category: Medical (2) Tubular adenoma of colon: Comment: 2021 scope= large TA is repeat in 3 years Code(s): D12.6 - Benign neoplasm of colon, unspecified Category: Medical (3) EPIFANIO (obstructive sleep apnea): Code(s): G47.33 - Obstructive sleep apnea (adult) (pediatric) Category: Medical (4) Obesity (BMI 35.0-39.9 without comorbidity): Code(s): E66.9 - Obesity, unspecified Category: Medical Plan She had a couple of rather large polyps on her 2021 colonoscopy. She denies any bowel or upper GI problems. There are no prior problems with anesthesia or sedation. She never completed the testing for EPIFANIO, so this is an uncertain diagnosis and she has a cardiac murmur but no dx and no over cardiac problems. NO ID problems. No known FHX of CRC or polyps. Yet she had large polyps. Orders: Referrals GI Procedure Notification D12.6 - Benign neoplasm of colon, unspecified Medications: New peg 3350-electrolytes 236-22.74-6.74 -5.86 gram (Golytely) until fecal effluent is clear; do not exceed a total volume of 2,000 mL 240 mL PO Q10M 4,000 mL 0RF 1 day Z12.11 - Encounter for screening for malignant neoplasm of colon bisacodyl (Dulcolax (bisacodyl)) 10 mg (2 x 5 mg) PO BEDTIME 4 tabs 0RF 2 days Coding Level of Care Code New Pt Level 3 (20243) Diagnoses Pre-op examination Z01.818 Tubular adenoma of colon D12.6 EPIFANIO (obstructive sleep apnea) G47.33 Obesity (BMI 35.0-39.9 without comorbidity) E66.9
--- OUTSIDE RECORDS SUMMARY | 2025-05-03 19:41 | XMS_ITS | Patient Health Record ---
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 Fixed Wing Aircraft Flight Engineer Name Role Phone LYRIC VIZCAINO Primary Care Provider Josesito Jacobson [phone] Reason For Referral No Information Medications Medication SIG (Take, Route, Frequency, Duration) Notes Start Date End Date Status Ezetimibe 10 MG 1 tablet Orally Once a day Active Januvia 100 MG 1 tablet Orally Once a day Active Venlafaxine HCl ER 75 MG 1 capsule with food Orally Once a day Active Lisinopril 5 MG 1 tablet Orally Once a day Active metFORMIN HCl 1000 MG 1 tablet with meal s Orally Twice a day Active Niacin ER 1000 MG 1 tablet with food O rally Once a day Active Pioglitazone HCl 30 MG 1 tablet Orally O nce a day Active Aspirin Adult Low Dose 81 MG 1 tablet Orally Once a day Active Immunizations Vaccine Route Administration Date Status Comme nts Influenza Unknown 05/09/2017 Administered Social History Tobacco Use: Social History Observation Description Date Details (start date - stop date) Never Smoker NA - NA Tobacco Use/Smoking Question Answer Notes Patient is a nonsmoker Alcohol Screen Question Answer Notes Did you have a drink contain ing alcohol in the past year? Yes How often did you have a dri nk containing alcohol in the past year? Monthly or less (1 point) How many drinks did you have on a typical day when you were drinking in the past year? 1 or 2 drinks (0 point) How often did you have 6 or more drinks on one occasion in the past year? Never (0 point) Points 1 Interpretation Negative Section Notes: Nonsmoker; no significant al cohol Nonsmoker; no significant al cohol Problems Problem Type SNOMED Code ICD Code Onset Dates Problem Status W/U Status Risk Notes Problem [id number] Elevated liver enzymes (R74.8) Active confirmed Problem 163080434 Fatty liver (K76.0) Active confirmed Plan Of Treatment Pending Test Test Name Order Date LIVER PROFILE 11/09/2017 Insurance Providers Payer Name Payer Address Payer Phone Subscriber Number Group Number Insured Name Patient Relationship to Insured Coverage Start Date Coverage End Date [facility] [address] [place], [place] [id number] [phone] [id number] JASON BOOKER Self - patient is the insured Medical (General) History Medical History History ICD Code NIDDM Denies [place],CVA,Lung disease,renal disease Seasonal allergies Hyperlipidemia Elevated LFT's since at leas t 2012--- fatty liver in relation to her diabetes, hyperlipidemia, and her weight--- the LFTs improved significantly after coming off of her statin medication--- the liver workup was completely negative including iron studies, alpha-1 antitrypsin level, ceruloplasmin level, viral serologies, and autoimmune studies. Surgical History Surgery Date(Month/Year) Carpal tunnel on the right Tubal ligation
== END 2025-05-03 16:01 | disposition home or self-care (01) ==
LOC: HO.HGI 15:35
PROVIDERS: PCP Nurse Practitioner Family; Visit Provider Nurse Practitioner
DX: Z01.818 Encounter for other preprocedural examination (principal); Z12.11 Encounter for screening for malignant neoplasm of colon; Z86.0101 Personal history of adenomatous and serrated colon polyps; G47.33 Obstructive sleep apnea (adult) (pediatric)
CPT/HCPCS: 99203

== ENCOUNTER 2025-05-21 09:52 | Outpatient (REF) | payer OTHER, SELFPAY ==
[2025-05-21 13:06] LABS: MANUAL DIFF FLAG NO
[2025-05-21 13:11] LABS: Hematocrit 36.2 % (37.0-47.0); Hemoglobin 11.5 g/dl (12.0-16.0); Imm Gran Abs Auto 0.00 X10*3/uL (0.00-0.03); Imm Gran Pct Auto 0.0 % (0.0-0.4); Lymphocytes Absolute Auto 2.2 X10*3/uL (1.2-4.9); Mean Corpuscular HGB Conc 31.8 g/dl (31.0-35.0); Mean Corpuscular Hemoglobin 29.9 pg (27.0-33.0); Mean Corpuscular Volume 94.0 fL (80.0-98.0); NRBC Abs Auto 0.000 X10*3/uL (0.0-0.012); NRBC Pct Auto 0.0 /100WBC (0.0-0.2); Platelet Count 266 X10*3/uL (160-400); Red Blood Count 3.85 X10*6/uL (4.20-5.50); White Blood Count 5.4 X10*3/uL (4.8-10.8)
[2025-05-21 13:25] LABS: Appearance Urine Clear; Glucose Urine UA Negative (Negative); PH 6.5 (5.0-9.0); Specific Gravity - Urine 1.020 (1.005-1.025); UMIC TRIGGER UACC YES
[2025-05-21 13:41] LABS: UACC Culture Trigger YES
[2025-05-21 13:52] LABS: Alanine Aminotransferase 22 U/L (0-31); Albumin Level 4.5 g/dL (3.5-5.0); Alkaline Phosphatase 101 U/L (39-117); Anion Gap 11 (12-20); Aspartate Amino Transferase 32 U/L (5-31); Blood Urea Nitrogen 16 mg/dL (9-16); Calcium 9.7 mg/dL (8.4-10.2); Carbon Dioxide 27 mmol/L (22-29); Chloride 106 mmol/L (96-108); Cholesterol 165 mg/dL (<200); Estimated Glomerular Filt Rate > 60; HDL Cholesterol 72 mg/dL (>40); Magnesium 2.0 mg/dL (1.6-2.6); Potassium 4.5 mmol/L (3.3-5.1); Sodium 139 mmol/L (135-145); Total Protein 7.8 g/dL (6.5-8.0); Triglycerides 65 mg/dL (<150)
[2025-05-21 13:55] LABS: Microalbum/Creatinine Ratio Ur 10.7 ug/mg cr (<30)
== END 2025-05-21 09:53 | disposition home or self-care (01) ==
LOC: HO.HMGCLDS 09:52
PROVIDERS: PCP Nurse Practitioner Family; Visit Provider Nurse Practitioner Family
DX: E11.9 Type 2 diabetes mellitus without complications (principal); E55.9 Vitamin D deficiency, unspecified
CPT/HCPCS: 36415; 80053; 80061; 81001; 82043; 82306; 82570; 83735; 84443; 85025; 87086

== ENCOUNTER 2025-05-28 15:50 | Outpatient (AMB) | payer OTHER, SELFPAY ==
[2025-05-28 16:04] VITALS: BP 114/62; PULSE 71; RESP 16; O2SAT 100; BMI 40.7
--- NOTE | 2025-05-28 16:04 | A.OFFPC_ITS ---
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 Required: No Accompanied by: Self / Same As Patient Allergies No Known Allergies Allergy (Verified 05/28/25 16:17) Medication List - Last Reconciled 05/28/25 by GIOVANNI RamonP- albuterol sulfate 90 mcg/actuation 1 inh inhalation QID PRN aspirin 81 mg PO DAILY atorvastatin 10 mg PO BEDTIME betamethasone dipropionate 0.05% 1 appl topical BID PRN bisacodyl (Dulcolax (bisacodyl)) 10 mg (2 x 5 mg) PO BEDTIME 2 days blood sugar diagnostic (FreeStyle Lite Strips) TID testing or as needed for hypo/hyperglycemia cetirizine (Zyrtec) 10 mg PO DAILY PRN colesevelam 625 mg PO BID fluorouracil 5% 1 appl topical BEDTIME 4 weeks gabapentin 100 mg PO TID lancets (BD Ultra Fine Lancets) TID testing or as needed for hypo/hyperglycemia lisinopril 10 mg PO DAILY meloxicam 15 mg PO DAILY PRN 30 days metformin 1,000 mg PO DAILY niacin ER 2,000 mg (2 x 1,000 mg) PO BEDTIME peg 3350-electrolytes 236-22.74-6.74 -5.86 gram (Golytely) 240 mL PO Q10M 1 day pioglitazone 30 mg PO DAILY semaglutide 2 mg (0.75 mL) subcut QWEEK venlafaxine ER 150 mg PO DAILY Tobacco use date assessed: 05/28/25 Dental Screening Dental Screen Date: 05/28/25 Did you have a dental visit in the last 12 months?: Yes Did you have a dental problem in the last 6 months where you did not have access to dental care?: No Was dental information given to patient?: Patient has dentist HPI PE HPI Details History of Present Illness The patient is a 54-year-old female presenting for a physical examination. She has a history of Type 2 Diabetes Mellitus, with her current A1c level at 5.6, indicating good glycemic control. Her diabetes management includes metformin, which is being reduced from twice daily to once daily due to her stable A1c levels. The patient also has a history of a systolic heart murmur, which was faintly noted during the examination. The last echocardiogram was performed in 2018, and a repeat is planned to assess any changes, although no new symptoms such as shortness of breath have been reported. She reports abdominal pain, with associated symptoms of constipation and diarrhea, but denies any chest pain, fevers, or chills. Her eye exams are up to date, and she denies any neuropathy, with positive sensation noted in her feet during examination. The patient is morbidly obese, which is a significant factor in her overall health management. Preventative care measures include a scheduled mammogram and an up-to-date colon cancer screening. Health Maintenance - Mammogram scheduled for this week - Colon cancer screening up to date -labs already drawn. Social History Review of Systems - Cardiovascular: Denies shortness of br eath, chest pain - Gastrointestinal: Reports abdominal pa in, constipation, diarrhea - General: Denies fevers, chills - Neurological: Denies neuropathy, posit deana sensation in feet Physical Exam General: Cooperative, healthy appearing, comfortable, no acute distress and well developed, morbidly obese Orientation: Patient oriented x3 Limitations: No limitations Head: Normal to inspection Ears: Hearing grossly normal bilaterally Nose: Normal external nose present Face and sinus: Normal facial exam Eyes: Appearance normal, both eyes and all related structures, reports eye exams up to date Neck: Normal visual inspection and Yes full ROM Respiratory: Normal respiratory effort and able to speak in complete sentences. Clear to auscultation bilaterally Cardiovascular: Regular rate and rhythm. Normal S1 and S2, systolic murmur noted, faint GI: Normal to inspection. Soft to palpation and nontender Skin: No rashes or lesions noted Neuro: Patient oriented x3, denies any neuropathy, positive sensation with use of monofilaments of feet Extremities: Normal to inspection, feet were intact bilat Results Plan 1. Type 2 Diabetes Mellitus The patient's A1c is currently at 5.6, indicating good glycemic control. The plan is to reduce metformin from twice daily to once daily to maintain this control. 2. Systolic Heart Murmur A faint systolic murmur was noted during the examination. A repeat echocardiogram is planned to assess any changes since the last one in 2018. 3. Morbid Obesity The patient's morbid obesity is a significant factor in her health management. Discussion Notes I discussed with the patient the impressive control of her diabetes as evidenced by her A1c level of 5.6, and we agreed to reduce her metformin dosage to once daily. We also talked about the faint systolic murmur detected during the examination, and I recommended a repeat echocardiogram to monitor any changes since 2018. Patient Instructions - Continue monitoring blood sugar levels regularly. - Take metformin once daily as discussed . - Follow up for the scheduled echocardio gram. - Maintain regular appointments for prev entative screenings. [facility] Medical History (Updated 05/28/25 @ 16:48 by [facility]) Encounter for routine adult physical exam with abnormal findings Colon cancer screening Screening for colon cancer Sinus infection URI (upper respiratory infection) COVID-19 Physical exam History of COVID-19 Sleep apnea Pneumonia Diabetes Surgical History H/O tubal ligation History of carpal tunnel surgery Family History Father HTN (hypertension) Myocardial infarction CVD (cardiovascular disease) Mother Asthma Maternal Grandmother Lung cancer Maternal Aunt Lung cancer Smoker Social History Housing: Apartment Alcohol intake: never Patient Tobacco Use Status: Never used Tobacco e-Cigarette/Vaping Use: Never Used Second Hand Smoke Exposure: No Current occupational status: employed Current occupation: [employer] Cognitive needs: No Hearing needs: No Vision needs: Yes Questionnaire PHQ-9 Over the last 2 weeks, how often have you been bothered by any of the following problems? 1. Little interest or pleasure in doing things: not at all 2. Feeling down, depressed, or hopeless: not at all 3. Trouble falling or staying asleep, or sleeping too much: not at all 4. Feeling tired or having little energy: not at all 5. Poor appetite or overeating: not at all 6. Feeling bad about yourself - or that you are a failure or have let yourself or your family down: not at all 7. Trouble concentrating on things, such as reading the newspaper or watching television: not at all 8. Moving or speaking so slowly that other people could have noticed. Or the opposite - being so fidgety or restless that you have been moving around a lot more than usual: not at all 9. Thoughts that you would be better off or of hurting yourself in some way: not at all Total score: 0 Depression Screening Interpretation: Negative Depression Screening Done: Yes 03545 - PHQ-9 Billing: Yes Source: Developed by Drs. Josesito Ulloa, Juana Calderon, Sushil Chavez and colleagues, with an educational sudheer from [employer]. Thrive Questionnaire Date Thrive assessed: 11/14/24 I am a: Patient What is your living situation today?: I have a steady place to live Within the past 12 months, did the food you bought not last and you didn't have the money to get more?: Never true Within the past 12 months, did you worry whether your food would run out before you got money to buy more?: Never true Do you have trouble paying for medicines?: No Do you have trouble getting transportation to medical appointments?: No Do you have trouble paying your heating and electricity bill?: No Do you have trouble taking care of your child, family member or friend?: No Do you have trouble with day-to-day activities such as bathing, preparing meals, shopping, managing finances, etc.?: No Are you currently unemployed and looking for a job?: No Are you interested in more education?: No Please select the resources that you would like help with: None Currently or been in a relationship where the following occur: No concerns reported THRIVE Score: 0 LETITIA-7 AMB Questionnaire LETITIA-7 Date LETITIA - 7 assessed: 12/27/24 Feeling nervous, anxious, or on edge: 0 = Not at all Not being able to stop or control worryin = Not at all Worrying too much about different things: 0 = Not at all Trouble relaxin = Not at all Being so restless that it is hard to sit still: 0 = Not at all Becoming easily annoyed or irritable: 0 = Not at all Feeling afraid as if something awful might happen: 0 = Not at all Total LETITIA-7 score (0-4 normal; 5-9 mild; 10-14 moderate; 15-21 severe): 0 Source: Developed by Drs. Josesito Ulloa, Juana Calderon, Sushil Chavez and colleagues, with an educational sudheer from [employer]. LETITIA-7 Assessment Billing LETITIA-7 Assessment Tool: LETITIA-7 Assessment 95339 Physical exam (Primary Care) Vital Signs: Last Vital Signs Pulse 71 05/28/25 16:04 Resp 16 05/28/25 16:04 BP 114/62 05/28/25 16:04 Pulse Ox 100 05/28/25 16:04 Oxygen Delivery Method Room Air 05/28/25 16:04 BMI result Body Mass Index 40.7 Tobacco/Smoking Status: Tobacco use Status Tobacco use date assessed 05/28/25 05/28/25 16:08 Patient Tobacco Use Status Never used Tobacco 05/28/25 16:06 e-Cigarette/Vaping Use Never Used 05/28/25 16:06 PHQ-9: PHQ-9 Score PHQ-9: Total score 0 05/28/25 16:13 Depression Screening Interpretation: Negative Thrive Assessment: Date of Thrive Assessment Date Thrive assessed 11/14/24 05/28/25 16:06 Currently or been in a relationship where the following occur: No concerns rep orted Results AMB Hemoglobin A1c AMB Hemoglobin A1c 5.6 % Last Edit by Kellee Carmona MA on 05/28/25 16:16 Results Reviewed Results Reviewed: Laboratory Last Values Hgb A1c (Clinic) 5.6 % (4.0-6.0) 05/28/25 15:11 Coding Level of Care Code Est Pt Level 3 (25387) Est Pt Prev Care 40-64y(31135) Diagnoses Systolic murmur R01.1 Diabetes E11.9 Encounter for routine adult physical exam with abnormal findings Z00. Additional Codes LETITIA-7 Assessment Billing - LETITIA-7 Assessment Tool: LETITIA-7 Assessment 41655 ([id number]) PHQ-9 - 96336 - PHQ-9 Billing: Yes ([id number]) Assessment & Plan Assessment & Plan (1) Systolic murmur: Code(s): R01.1 - Cardiac murmur, unspecified Category: Medical (2) Diabetes: Code(s): E11.9 - Type 2 diabetes mellitus without complications Category: Medical (3) Encounter for routine adult physical exam with abnormal findings: Code(s): Z00.01 - Encounter for general adult medical examination with abnormal findings Category: Medical Plan . Orders: Orders AMB Hemoglobin A1c Today Z13.9 - Encounter for screening, unspecified CA echo transthoracic complete Today R01.1 - Cardiac murmur, unspecified
--- OUTSIDE RECORDS SUMMARY | 2025-05-28 20:08 | XMS_ITS | Patient Health Record ---
Author Organization [facility] Address [address] [place] [address] Care Team Providers Care Acute Care Physician Name Role Phone LYRIC VIZCAINO Primary Care Provider Josesito Jacobson [phone] Reason For Referral No Information Medications Medication [...] Problem Status W/U Status Risk Notes Problem Elevated liver enzymes level (209058953) Elevated liver enzymes (R74.8) Active confirmed Problem Fatty liver ([id number]) Fatty liver (K76.0) Active confirmed Plan Of Treatment Pending Test Test Name Order Date LIVER PROFILE 11/09/2017 Insurance Providers Payer Name Payer Address Payer Phone Subscriber Number Group Number Insured Name Patient Relationship to Insured Coverage Start Date Coverage End Date [facility] [address] [place], [place] [id number] [phone] [id number] JASON BOOKER Self - patient is the insured Medical (General) History Medical History History ICD Code NIDDM Denies [place],CVA,Lung disease,renal disease Seasonal allergies Hyperlipidemia Elevated LFT's [...]
== END 2025-05-28 16:34 | disposition home or self-care (01) ==
LOC: HO.HMCC 15:50
PROVIDERS: PCP Nurse Practitioner Family; Visit Provider Nurse Practitioner Family
DX: Z00.00 Encounter for general adult medical examination without abnormal findings (principal); R01.1 Cardiac murmur, unspecified; E11.9 Type 2 diabetes mellitus without complications

== ENCOUNTER → 2025-05-28 15:50 | Outpatient (BNVA) | payer OTHER, SELFPAY | PROVIDERS: PCP Nurse Practitioner Family; Visit Provider Nurse Practitioner Family | DX: Z00.01 Encounter for general adult medical examination with abnormal findings (principal); E11.9 Type 2 diabetes mellitus without complications; R01.1 Cardiac murmur, unspecified; R10.9 Unspecified abdominal pain; K59.00 Constipation, unspecified; R19.7 Diarrhea, unspecified; E66.01 Morbid (severe) obesity due to excess calories; Z68.41 Body mass index [BMI] 40.0-44.9, adult | CPT/HCPCS: 83036; 96127 ==

== ENCOUNTER 2025-06-02 08:19 | Outpatient (REF) | payer OTHER, SELFPAY | END 2025-06-02 08:20 | disposition home or self-care (01) | LOC: HO.MAMMO 08:19 | PROVIDERS: PCP Nurse Practitioner Family; Visit Provider Nurse Practitioner Family | DX: Z12.31 Encounter for screening mammogram for malignant neoplasm of breast (principal) | CPT/HCPCS: 77063; 77067 ==

== ENCOUNTER → 2025-06-02 08:30 | Outpatient (BNV) | payer OTHER, SELFPAY | PROVIDERS: PCP Nurse Practitioner Family; Visit Provider Internal Medicine | DX: Z12.31 Encounter for screening mammogram for malignant neoplasm of breast (principal) | CPT/HCPCS: 77063; 77067 ==